=== PATIENT | female | born 1960 | race Caucasian/White ===

== ENCOUNTER 2016-12-27 10:34 | Emergency (ER) | payer BC ==
[2016-12-27] MEDS ORDERED: SODIUM CHLORIDE 0.9% 500 ML IV STA (11:00)
[2016-12-27] MEDS ORDERED: ACETAMINOPHEN TAB 500 MG TAB PO STA (11:00)
[2016-12-27] MEDS ORDERED: SODIUM CHLORIDE 0.9% 1,000 ML IV STA (11:00)
[2016-12-27] MEDS ORDERED: KETOROLAC 30 MG/ML 1 ML VIAL IVP STA (11:01)
[2016-12-27] MEDS ORDERED: IV VANCOMYCIN PER PHARMACY 1 EACH MISC MISCELLANE PRN (11:01)
[2016-12-27] MEDS ORDERED: VANCOMYCIN 1,000 MG in SODIUM CHLORIDE 0.9% 250 ML IVPB STA (11:22)
[2016-12-27 11:25] LABS: Basophils % (A) 0 %; CH 31.3; CHCM 33.2; Eosinophils # (A) 0.4 k/uL (0-0.7); Eosinophils % (A) 2 %; HCT 42.9 % (34.0-46.0); HDW 2.28; Luc # (Auto) 0.09; Luc % (Auto) 1; Lymphocytes # (A) 1.1 k/uL (1.0-4.8); Lymphocytes % (A) 6 %; MCH 30.9 pg (25.0-35.0); MCHC 32.6 g/dL (31.0-37.0); MCV 94.7 fL (80.0-100.0); Mean Platelet Volume 7.2; Monocytes # (A) 0.7 k/uL (0-1.0); Monocytes % (A) 3 %; Neutrophils # (A) 17.1 k/uL (1.3-7.7); Neutrophils % (A) 88 %; RBC 4.54 m/uL (3.80-5.40); RDW 13.6 % (11.5-15.5); WBC 19.3 k/uL (3.8-10.6); WBC (Perox) 19.31
[2016-12-27 11:39] LABS: ALT 39 U/L (9-52); AST 29 U/L (14-36); Alkaline Phosphatase 59 U/L (38-126); Anion Gap 10 mmol/L; Blood Urea Nitrogen 16 mg/dL (7-17); Calcium 9.3 mg/dL (8.4-10.2); Carbon Dioxide 28 mmol/L (22-30); Chloride 101 mmol/L (98-107); Glucose 91 mg/dL (74-99); Non-African American GFR(MDRD) >60 (>60 ml/min/1.73 sqM); Potassium 4.4 mmol/L (3.5-5.1); Sodium 139 mmol/L (137-145); Total Bilirubin 1.4 mg/dL (0.2-1.3)
--- NOTE | 2016-12-27 12:04 | XR ---
EXAMINATION TYPE: XR chest 2V DATE OF EXAM: 12/27/2016 COMPARISON: 08/12/13 HISTORY: Shortness of breath TECHNIQUE: Frontal and lateral views of the chest are obtained. FINDINGS: Scattered senescent parenchymal changes noted. Hyperinflation compatible with COPD. No evidence for infiltrate. No evidence for atelectasis. Heart size is stable. Mediastinal structures are stable and grossly unremarkable. No evidence for hilar prominence. Degenerative changes dorsal spine. IMPRESSION: 1. No evidence for acute pulmonary disease.
[2016-12-27 12:40] LABS: Appearance,Urine Clear (Clear); Bilirubin,Urine Negative (Negative); Glucose,Urine (UA) Negative (Negative); Ketones,Urine Negative (Negative); Leukocyte Esterase,Urine Negative (Negative); Mucus,Urine Rare /hpf; Nitrite,Urine Negative (Negative); PH, Urine 6.5 (5.0-8.0); Particle Count 1737; Protein,Urine Trace (Negative); RBC,Urine 3 /hpf (0-5); Specific Gravity,Urine 1.017 (1.001-1.035); Squamous Epithelial Cell,Urine <1 /hpf (0-4); UA Billing (MACRO vs. MICRO) MICRO; Urobilinogen,Urine <2.0 mg/dL (<2.0); WBC,Urine <1 /hpf (0-5)
--- NOTE | 2016-12-27 13:01 | ED ---
General Adult HPI - General Chief complaint: Skin/Abscess/Foreign Body Stated complaint: rt groin infection, MRSA Time Seen by Provider: 12/27/16 10:50 Source: patient Mode of arrival: ambulatory Limitations: no limitations - History of Present Illness Initial comments: This 56-year-old white female presents with the complaint of a fever. She states that this came on approximately 2 days ago. She apparently had been on some antibiotics for a recent perivaginal abscess which apparently came back positive for MRSA. She has had some diffuse myalgias and slight headache. She denies any cough or shortness of breath. She relates that she's had some yellowish and darkish production with her cough. She has also had significant nasal congestion and drainage. She denies any urinary symptoms. She states that she had an incision and drainage of her perivaginal abscess and this is healed quite well. Her symptoms have resolved in this regard. She apparently was on minocycline as well as Keflex. No other complaints or modifying factors. - Related Data Previous Rx's Medication Instructions Recorded Albuterol Sulfate [Proair Hfa] 1 - 2 puff INHALATION Q6HR PRN #1 12/27/16 inhaler Levofloxacin [Levaquin] 750 mg PO DAILY #7 tab 12/27/16 Allergies Allergy/AdvReac Type Severity Reaction Status Date / Time Sulfa (Sulfonamide Allergy Rash/Hives Verified 12/27/16 11:02 Antibiotics) Review of Systems ROS Statement: Those systems with pertinent positive or pertinent negative responses have been documented in the HPI. ROS Other: All systems not noted in ROS Statement are negative. Past Medical History Past Medical History: No Reported History History of Any Multi-Drug Resistant Organisms: MRSA Date of last positivie culture/infection: 12/12/16 MDRO Source:: VUVLA Past Surgical History: Breast Surgery, Cholecystectomy, Orthopedic Surgery, Tonsillectomy, Tubal Ligation Additional Past Surgical History / Comment(s): right hand, breast Past Psychological History: No Psychological Hx Reported Smoking Status: Current some day smoker Past Alcohol Use History: Daily Past Drug Use History: None Reported General Exam - General Exam Comments Initial Comments: GENERAL: The patient is well nourished and well hydrated. She has a temperature of 101. VITAL SIGNS: Heart rate, blood pressure, respiratory rate reviewed as recorded in nurse's notes. EYES: Pupils are round and reactive. Extraocular movements are intact. No conjunctival / lid redness or swelling. ENT: No external evidence of injury, swelling, or ecchymosis. Airway is patent. Throat is clear. NECK: Nontender. No swelling or evidence of injury. No subcutaneous emphysema. Trachea is midline. No thyroid mass. HEART: Regular rate and rhythm. Good peripheral pulses. LUNGS/CHEST: Breath sounds clear and equal bilaterally. No rales, rhonchi, or wheezes. No ecchymosis, subcutaneous emphysema, or tenderness. ABDOMEN: Abdomen soft without tenderness. No palpable masses or organomegaly. No peritoneal signs. No abdominal wall swelling or ecchymosis. EXTREMITIES: No extremity tenderness. Normal muscle tone and function. No thoracolumbar tenderness. NEUROLOGIC: Sensation is grossly intact. Cranial nerve exam reveals face is symmetrical, tongue is midline, speech is clear. SKIN: No abrasions or ecchymosis is noted. No induration or masses noted. PSYCHIATRIC: Alert and oriented. Appropriate behavior and judgment. Genitourinary: There is no further swelling or evidence of abscess or inflammation noted. There is no fluctuance or erythema. Limitations: no limitations Course Vital Signs 12/27/16 12/27/16 12/27/16 10:38 12:01 13:07 Temperature 101.0 F H 100.5 F H Pulse Rate 110 H 99 95 Respiratory 18 17 Rate Blood Pressure 125/60 121/66 O2 Sat by Pulse 100 99 Oximetry Medical Decision Making - Medical Decision Making The patient was seen and examined. All diagnostics were reviewed. The chest x- ray does not show any acute process. The white blood cell count is elevated. An IV is started and she is hydrated and does receive some vancomycin intravenously. The chest x-ray was negative. The WBC was elevated. The patient is doing well on recheck. The urinalysis is negative. It is not felt as though this is related to her recent perivaginal MRSA infection. This area seems to be healing quite well and is essentially resolved. She initially was given vancomycin is of her recent history but it is felt as though she likely has other bacteria causing her sinusitis and bronchitis that would be susceptible to Levaquin. It is felt as though she is stable with outpatient treatment. - Lab Data Result diagrams: 12/27/16 11:15 12/27/16 11:15 Lab Results 12/27/16 12/27/16 12/27/16 Range/Units 11:15 11:15 12:00 WBC 19.3 H (3.8-10.6) k/uL RBC 4.54 (3.80-5.40) m/uL Hgb 14.0 (11.4-16.0) gm/dL Hct 42.9 (34.0-46.0) % MCV 94.7 (80.0-100.0) fL MCH 30.9 (25.0-35.0) pg MCHC 32.6 (31.0-37.0) g/dL RDW 13.6 (11.5-15.5) % Plt Count 355 (150-450) k/uL Neutrophils % 88 % Lymphocytes % 6 % Monocytes % 3 % Eosinophils % 2 % Basophils % 0 % Neutrophils # 17.1 H (1.3-7.7) k/uL Lymphocytes # 1.1 (1.0-4.8) k/uL Monocytes # 0.7 (0-1.0) k/uL Eosinophils # 0.4 (0-0.7) k/uL Basophils # 0.0 (0-0.2) k/uL Sodium 139 (137-145) mmol/L Potassium 4.4 (3.5-5.1) mmol/L Chloride 101 (98-107) mmol/L Carbon Dioxide 28 (22-30) mmol/L Anion Gap 10 mmol/L BUN 16 (7-17) mg/dL Creatinine 0.77 (0.52-1.04) mg/dL Est GFR (MDRD) Af Amer >60 (>60 ml/min/1.73 sqM) Est GFR (MDRD) Non-Af >60 (>60 ml/min/1.73 sqM) Glucose 91 (74-99) mg/dL Calcium 9.3 (8.4-10.2) mg/dL Total Bilirubin 1.4 H (0.2-1.3) mg/dL AST 29 (14-36) U/L ALT 39 (9-52) U/L Alkaline Phosphatase 59 (38-126) U/L Total Protein 7.0 (6.3-8.2) g/dL Albumin 4.4 (3.5-5.0) g/dL Urine Color Yellow Urine Appearance Clear (Clear) Urine pH 6.5 (5.0-8.0) Ur Specific Hudson 1.017 (1.001-1.035) Urine Protein Trace H (Negative) Urine Glucose (UA) Negative (Negative) Urine Ketones Negative (Negative) Urine Blood Trace H (Negative) Urine Nitrite Negative (Negative) Urine Bilirubin Negative (Negative) Urine Urobilinogen <2.0 (<2.0) mg/dL Ur Leukocyte Esterase Negative (Negative) Urine RBC 3 (0-5) /hpf Urine WBC <1 (0-5) /hpf Ur Squamous Epith Cells <1 (0-4) /hpf Urine Mucus Rare H (None) /hpf Disposition Clinical Impression: Bronchitis, Sinusitis, Fever Disposition: HOME SELF-CARE Condition: Good Instructions: Acute Bronchitis (ED), Sinusitis (ED) Additional Instructions: Please use Motrin and/or Tylenol as needed for any pain or fever. Please also use Mucinex DM [id number] medication as needed for any cough or congestion. Prescriptions: Albuterol Sulfate [Proair Hfa] 1 - 2 puff INHALATION Q6HR PRN #1 inhaler PRN Reason: Shortness Of Breath Or Wheezing Levofloxacin [Levaquin] 750 mg PO DAILY #7 tab Referrals: Bryce Tee MD [Primary Care Provider] - 1-2 days Time of Disposition: 15:25
[2016-12-27 15:21] VITALS: RESP 16
[2016-12-27 15:37] VITALS: BP 114/58; PULSE 80; TEMP 98.1
[2016-12-27] MEDS ORDERED: VANCOMYCIN 1,000 MG in SODIUM CHLORIDE 0.9% 250 ML IVPB SCH (21:00)
== END 2016-12-27 15:46 | disposition home or self-care (01) ==
LOC: EC 10:34
DX: J40 Bronchitis, not specified as acute or chronic (principal); J32.9 Chronic sinusitis, unspecified; F17.200 Nicotine dependence, unspecified, uncomplicated; Z86.14 Personal history of Methicillin resistant Staphylococcus aureus infection; Z88.2 Allergy status to sulfonamides
CPT/HCPCS: 99283; 96365; 96366 ×2; 96375; 96361 ×2; 36415; 80053; 85025; 81001; 87040; 87086; 71020; J3370; J1885

== ENCOUNTER → 2017-01-18 | Outpatient (CLI) | payer BC ==
[2017-01-18 13:15] LABS: Basophils % (A) 1 %; CHCM 32.5; Eosinophils # (A) 0.6 k/uL (0-0.7); Eosinophils % (A) 7 %; HCT 39.2 % (34.0-46.0); HDW 2.47; HGB 12.6 gm/dL (11.4-16.0); Luc # (Auto) 0.14; Luc % (Auto) 2; Lymphocytes # (A) 2.8 k/uL (1.0-4.8); Lymphocytes % (A) 32 %; MCH 30.9 pg (25.0-35.0); MCHC 32.2 g/dL (31.0-37.0); Monocytes # (A) 0.4 k/uL (0-1.0); Monocytes % (A) 4 %; Neutrophils # (A) 4.8 k/uL (1.3-7.7); Neutrophils % (A) 55 %; RBC 4.08 m/uL (3.80-5.40); RDW 13.9 % (11.5-15.5); WBC 8.8 k/uL (3.8-10.6); WBC (Perox) 8.74
[2017-01-18 13:27] LABS: ALT 45 U/L (9-52); AST 30 U/L (14-36); Alkaline Phosphatase 53 U/L (38-126); Anion Gap 10 mmol/L; Blood Urea Nitrogen 9 mg/dL (7-17); Calcium 9.6 mg/dL (8.4-10.2); Carbon Dioxide 27 mmol/L (22-30); Chloride 105 mmol/L (98-107); Glucose 89 mg/dL (74-99); Non-African American GFR(MDRD) >60 (>60 ml/min/1.73 sqM); Potassium 4.1 mmol/L (3.5-5.1); Sodium 142 mmol/L (137-145); Total Bilirubin 0.7 mg/dL (0.2-1.3)
[2017-01-18 13:30] LABS: Rheumatoid Factor, Qnt <9 IU/mL (<12)
[2017-01-18 14:24] LABS: Erythrocyte Sedimentation Rate 13 mm/hr (0-20)
[2017-01-18 19:23] LABS: Treponemal Ab Non-Reactive (Non-Reactive)
[2017-01-18 21:52] LABS: ANA w/Reflex to Titer NEGATIVE (NEGATIVE)
== END | disposition home or self-care (01) ==
LOC: LABWHC1 12:46
PROVIDERS: ATTEND Internal Medicine Infectious Disease
DX: R50.81 Fever presenting with conditions classified elsewhere (principal); R50.9 Fever, unspecified; A78 Q fever
CPT/HCPCS: 36415; 80053; 85025; 85652; 86038; 86431; 86780; 87390

== ENCOUNTER → 2017-02-12 | Outpatient (CLI) | payer BC ==
--- NOTE | 2017-02-13 08:22 | CT ---
EXAMINATION TYPE: CT ChestAbdPelvis w con DATE OF EXAM: 02/12/2017 COMPARISON: NONE HISTORY: Fever of unknown region. CT DLP: 516.7 mGycm Automated exposure control for dose reduction was used. CONTRAST: CT scan of the chest, abdomen and pelvis is performed with Oral Contrast and with IV Contrast, patien t injected with 100 mL of Omnipaque 300. FINDINGS: LUNGS: Some emphysematous changes are present at the lung apices. No endobronchial lesion, pleural pe ricardial effusion. No evident airspace disease. Bilateral breast prosthetics are in place. MEDIASTINUM: There are no greater than 1 cm hilar or mediastinal lymph nodes. No pericardial effusi on is seen. AORTA: No significant abnormality is seen. OTHER: No additional significant abnormality is seen. LIVER/GB: Gallbladder is absent. No evident liver mass. Low-attenuation within the liver may represen t hepatic steatosis. PANCREAS: No significant abnormality is seen. SPLEEN: No significant abnormality is seen. ADRENALS: No significant abnormality is seen. KIDNEYS: Prominent renal pelves may be indicative of partial UPJ obstructions. No evident renal mass. REPRODUCTIVE ORGANS: Uterus and ovaries not seen. BOWEL: The appendix is not seen with certainty. No evident bowel obstruction. Scattered diverticular change in the sigmoid colon suspected. Retained fecal debris throughout the distribution of the colo n. FREE AIR: No Free Air visible. ASCITES: None seen. RETROPERITONEAL ADENOPATHY: No retroperitoneal adenopathy is seen. LYMPH NODES: No greater than 1 cm abdominal or pelvic lymph nodes are appreciated. URINARY BLADDER: No significant abnormality is seen. PELVIC ADENOPATHY: None visualized. 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 IMPRESSION: Postop changes. Diverticulosis. Degenerative disc disease. Additional findings above.
== END | disposition home or self-care (01) ==
LOC: RADCTMAIN 18:23
PROVIDERS: ATTEND Internal Medicine Infectious Disease
DX: K57.30 Diverticulosis of large intestine without perforation or abscess without bleeding (principal); Z98.890 Other specified postprocedural states
CPT/HCPCS: 71260; 74177; Q9967

== ENCOUNTER → 2018-03-05 | Outpatient (CLI) | payer BC ==
--- NOTE | 2018-03-05 15:43 | US ---
EXAMINATION TYPE: US pelvic complete DATE OF EXAM: 03/05/2018 COMPARISON: CT 02/12/2017 CLINICAL HISTORY: Z12.4. Pelvic pain. Partial hysterectomy in 1979 per patient TECHNIQUE: . Transabdominal sonographic images of the pelvis were acquired. Date of LMP: 1979 EXAM MEASUREMENTS: Uterus: Surgically absent Endometrial Stripe: Surgically absent Right Ovary: 2.5 x 1.1 x 1.7 cm Left Ovary: 1.8 x 1.2 x 1.1 cm 1. Uterus: Surgically absent 2. Endometrium: Surgically absent 3. Right Ovary: wnl as visualized 4. Left Ovary: wnl as visualzied 5. Bilateral Adnexa: wnl 6. Posterior cul-de-sac: wnl IMPRESSION: 1. No distinct abnormality seen at this time.
== END | disposition home or self-care (01) ==
LOC: RADUSWWP 14:56
PROVIDERS: ATTEND Family Medicine
DX: R10.2 Pelvic and perineal pain (principal)
CPT/HCPCS: 76856

== ENCOUNTER → 2019-11-05 | Outpatient (CLI) | payer BC ==
--- NOTE | 2019-11-05 13:30 | XR ---
EXAMINATION TYPE: XR chest 2V DATE OF EXAM: 11/05/2019 COMPARISON: 12/27/2016 HISTORY: Costochondral junction syndrome, chest pain TECHNIQUE: Frontal and lateral views of the chest are obtained. FINDINGS: There is no focal air space opacity, pleural effusion, or pneumothorax seen. Stable minim al biapical pleural-parenchymal thickening. The cardiac silhouette size is within normal limits mild multilevel degenerative change of the spine. Cholecystectomy clips noted. IMPRESSION: No acute cardiopulmonary process.
== END | disposition home or self-care (01) ==
LOC: RADXRMAIN 12:26
PROVIDERS: ATTEND Family Medicine
DX: M94.0 Chondrocostal junction syndrome [Tietze] (principal)
CPT/HCPCS: 71046

== ENCOUNTER 2020-02-16 16:56 | Emergency (ER) | payer BC ==
[2020-02-16 17:03] VITALS: BP 153/75; PULSE 88; RESP 18; TEMP 98.2
[2020-02-16] MEDS ORDERED: HYDROmorphone 0.5 MG/0.5 ML SYRINGE IM STA (17:16)
[2020-02-16] MEDS ORDERED: ONDANSETRON ODT 4 MG TAB PO STA (17:16)
--- NOTE | 2020-02-16 18:18 | XR ---
EXAMINATION TYPE: XR ribs RT w pa chest xray DATE OF EXAM: 02/16/2020 COMPARISON: 11/05/2019 HISTORY: Pain TECHNIQUE: Chest with 2 view right ribs FINDINGS: Heart size is normal. Pulmonary vasculature is normal. Lungs are clear. Right ribs appear intact. No displaced rib fractures are identified. IMPRESSION: 1. Normal 2 view right ribs
[2020-02-16] MEDS ORDERED: ACET/COD 300 MG/30 MG STARTER PACK 6 TAB BTL PO STA (18:42)
[2020-02-16] MEDS ORDERED: ONDANSETRON 4 MG ODT STARTER PACK 2 TAB BTL PO STA (18:42)
--- NOTE | 2020-02-16 18:42 | ED ---
General Adult HPI - General Chief complaint: Chest Pain Stated complaint: pain under ribs Time Seen by Provider: 02/16/20 17:05 Source: patient Mode of arrival: ambulatory Limitations: no limitations - History of Present Illness Initial comments: 60-year-old female with a past medical history of MRSA presents to the emergency room for a chief complaint of right rib pain. Patient states she was reaching over to tack picker a heavy pot when she felt a pop in the right side of her ribs. States it is very painful to move. States she sneezed and exacerbated the pain earlier. She denies any shortness of breath. Denies any abdominal pain. Denies any anterior chest pain.Patient has no other complaints at this time including shortness of breath, abdominal pain, nausea or vomiting, headache, or visual changes. - Related Data Previous Rx's Medication Instructions Recorded Albuterol Sulfate [Proair Hfa] 1 - 2 puff INHALATION Q6HR PRN #1 12/27/16 inhaler Levofloxacin [Levaquin] 750 mg PO DAILY #7 tab 12/27/16 Allergies Allergy/AdvReac Type Severity Reaction Status Date / Time Sulfa (Sulfonamide Allergy Rash/Hives Verified 02/16/20 17:03 Antibiotics) codeine AdvReac Nausea & Verified 02/16/20 17:03 Vomiting Review of Systems ROS Statement: Those systems with pertinent positive or pertinent negative responses have been documented in the HPI. ROS Other: All systems not noted in ROS Statement are negative. Past Medical History Past Medical History: No Reported History History of Any Multi-Drug Resistant Organisms: MRSA Date of last positivie culture/infection: 12/12/16 MDRO Source:: VUVLA Past Surgical History: Breast Surgery, Cholecystectomy, Orthopedic Surgery, Tonsillectomy, Tubal Ligation Additional Past Surgical History / Comment(s): right hand, breast, Past Psychological History: No Psychological Hx Reported Smoking Status: Current every day smoker Past Alcohol Use History: Occasional Past Drug Use History: None Reported General Exam Limitations: no limitations General appearance: alert, in no apparent distress Head exam: Present: atraumatic, normocephalic, normal inspection Eye exam: Present: normal appearance, PERRL, EOMI. Absent: scleral icterus, conjunctival injection, periorbital swelling ENT exam: Present: normal exam, mucous membranes moist Neck exam: Present: normal inspection, full ROM. Absent: tenderness, m eningismus, lymphadenopathy Respiratory exam: Present: normal lung sounds bilaterally, chest wall tenderness (Patient has right-sided anterior lateral lower rib tenderness around rib 9). Absent: respiratory distress, wheezes, rales, rhonchi, stridor Course Vital Signs 02/16/20 02/16/20 16:59 17:31 Temperature 98.2 F Pulse Rate 88 Respiratory 18 18 Rate Blood Pressure 153/75 O2 Sat by Pulse 99 Oximetry Medical Decision Making - Medical Decision Making Rib study with an anterior posterior chest x-ray was obtained which was unremarkable. Patient likely strained intercostal muscle. Patient was given pain medication she will follow up with primary care. She'll return if you have any worsening symptoms.I discussed this case with attending Dr. Cortes who agrees with this assessment and treatment plan. Disposition Clinical Impression: Rib pain on right side Disposition: HOME SELF-CARE Condition: Good Instructions (If sedation given, give patient instructions): Costochondritis (ED) Additional Instructions: Please take Motrin for pain. If pain is severe take Tylenol 3. Please follow- up with your doctor. If you have any worsening symptoms return to the emergency room. Is patient prescribed a controlled substance at d/c from ED?: No Referrals: Mina Candelario MD [Primary Care Provider] - 1-2 days Time of Disposition: 18:40
== END 2020-02-16 18:50 | disposition home or self-care (01) ==
LOC: EC 16:56
DX: R07.81 Pleurodynia (principal); F17.200 Nicotine dependence, unspecified, uncomplicated; Z88.2 Allergy status to sulfonamides; Z88.5 Allergy status to narcotic agent
CPT/HCPCS: 71101; 99283; 96372; S0119; J1170

== ENCOUNTER → 2020-04-21 | Outpatient (CLI) | payer BC | END | disposition home or self-care (01) | LOC: LABWHC1 12:00 | PROVIDERS: ATTEND Nurse Practitioner | DX: Z03.89 Encounter for observation for other suspected diseases and conditions ruled out (principal) | CPT/HCPCS: U0003; C9803 ==

== ENCOUNTER 2020-05-24 08:47 | Emergency (ER) | payer BC ==
[2020-05-24 08:53] VITALS: RESP 18
[2020-05-24] MEDS ORDERED: KETOROLAC 15 MG/ML 1 ML VIAL IM STA (09:06)
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
[2020-05-24 09:45] LABS: Basophils # (A) 0.1 k/uL (0-0.2); Basophils % (A) 1 %; Eosinophils # (A) 0.2 k/uL (0-0.7); Eosinophils % (A) 2 %; HCT 39.7 % (34.0-46.0); HGB 13.6 gm/dL (11.4-16.0); Lymphocytes # (A) 2.6 k/uL (1.0-4.8); Lymphocytes % (A) 31 %; MCH 31.8 pg (25.0-35.0); MCHC 34.3 g/dL (31.0-37.0); MCV 92.8 fL (80.0-100.0); Mean Platelet Volume 7.3; Monocytes # (A) 0.5 k/uL (0-1.0); Monocytes % (A) 6 %; Neutrophils # (A) 4.8 k/uL (1.3-7.7); Neutrophils % (A) 58 %; Platelet Count 385 k/uL (150-450); RBC 4.28 m/uL (3.80-5.40); RDW 12.9 % (11.5-15.5); WBC 8.3 k/uL (3.8-10.6)
[2020-05-24 09:54] LABS: ALT 24 U/L (4-34); African American GFR (CKD) >90 (>60 ml/min/1.73 sqM); Albumin 4.6 g/dL (3.5-5.0); Anion Gap 7 mmol/L; Blood Urea Nitrogen 14 mg/dL (7-17); Calcium 9.4 mg/dL (8.4-10.2); Carbon Dioxide 27 mmol/L (22-30); Chloride 106 mmol/L (98-107); Glucose 89 mg/dL (74-99); Non-African American GFR(CKD) >90 (>60 ml/min/1.73 sqM); Sodium 140 mmol/L (137-145); Total Bilirubin 0.8 mg/dL (0.2-1.3); Total Protein 7.2 g/dL (6.3-8.2)
[2020-05-24 09:56] LABS: AST 36 U/L (14-36); Alkaline Phosphatase 39 U/L (38-126); Potassium 4.6 mmol/L (3.5-5.1)
--- NOTE | 2020-05-24 10:05 | XR ---
EXAMINATION TYPE: XR chest 2V DATE OF EXAM: 05/24/2020 COMPARISON: 9 8 INDICATION: Pain TECHNIQUE: Frontal and lateral views of the chest are obtained. FINDINGS: The heart size is normal. The pulmonary vasculature is normal. The lungs are clear. IMPRESSION: 1. No acute pulmonary process.
--- NOTE | 2020-05-24 10:06 | XR ---
EXAMINATION TYPE: XR wrist complete RT DATE OF EXAM: 05/24/2020 COMPARISON: None HISTORY: Pain TECHNIQUE: Right FINDINGS: No acute fractures or dislocations are evident. Joint spaces are preserved. Soft tissues. Follow-up study can be performed 7-10 days from acute trauma for continued pain. Nuclear medicine bon e scan could be performed for continued pain at the anatomic snuff box. IMPRESSION: 1. Normal 4 view right wrist
[2020-05-24] MEDS ORDERED: ACET/COD 300 MG/30 MG STARTER PACK 6 TAB BTL PO STA (10:45)
[2020-05-24 10:52] VITALS: BP 138/74; PULSE 71; TEMP 98.6
== END 2020-05-24 10:51 | disposition home or self-care (01) ==
LOC: EC 08:47
DX: R07.81 Pleurodynia (principal); M25.531 Pain in right wrist; F17.200 Nicotine dependence, unspecified, uncomplicated; Z88.2 Allergy status to sulfonamides; Z88.5 Allergy status to narcotic agent
CPT/HCPCS: 36415; 85379; 80053; 84484; 85025; 73110; 71046; 99285; 96372; J1885; 93005

== ENCOUNTER → 2020-05-27 | Outpatient (CLI) | payer BC ==
--- NOTE | 2020-05-30 09:57 | MM ---
Reason for exam: screening (asymptomatic). Last mammogram was performed 7 years and 2 months ago. History: Patient history of other cancer. Saline implants in both breasts, 2007. Physical Findings: A clinical breast exam by your physician is recommended on an annual basis and results should be correlated with mammographic findings. MG 3D Screen Mammo Imp/Cad Bilateral CC, MLO, and ID view(s) were taken. Prior study comparison: March 25, 2013, mammogram. March 20, 2013, mammogram. The breast tissue is heterogeneously dense. This may lower the sensitivity of mammography. Stable benign calcifications. Stable bilateral implants. No significant changes when compared with prior studies. ASSESSMENT: Benign, BI-RAD 2 RECOMMENDATION: Routine screening mammogram of both breasts in 1 year.
== END | disposition home or self-care (01) ==
LOC: RADMAMWWP 09:38
PROVIDERS: ATTEND Family Medicine
DX: Z12.31 Encounter for screening mammogram for malignant neoplasm of breast (principal)
CPT/HCPCS: 77063; 77067

== ENCOUNTER → 2020-07-07 | Outpatient (CLI) | payer BC | END | disposition home or self-care (01) | LOC: LABWHC1 15:50 | PROVIDERS: ATTEND Family Medicine | DX: Z20.822 Contact with and (suspected) exposure to COVID-19 (principal) | CPT/HCPCS: 87502; C9803 ==

== ENCOUNTER → 2020-08-25 | Outpatient (CLI) | payer BC | END | disposition home or self-care (01) | LOC: LABWHC1 11:48 | PROVIDERS: ATTEND Nurse Practitioner Family | DX: L30.9 Dermatitis, unspecified (principal) | CPT/HCPCS: 36415; 86060 ==

== ENCOUNTER → 2020-09-08 | Outpatient (CLI) | payer BC | END | disposition home or self-care (01) | LOC: LABWHC1 16:15 | PROVIDERS: ATTEND Family Medicine | DX: U07.1 COVID-19 (principal) | CPT/HCPCS: U0003; C9803; U0005 ==

== ENCOUNTER → 2020-09-23 | Outpatient (CLI) | payer BC ==
--- NOTE | 2020-09-25 06:54 | MR ---
EXAMINATION TYPE: MR knee RT wo con DATE OF EXAM: 09/23/2020 COMPARISON: Outside right knee x-rays September 19, 2020. HISTORY: R knee pain x 2 months TECHNIQUE: Multiplanar, multisequence imaging of the right knee is performed without IV contrast. FINDINGS: MEDIAL MENISCUS: Oblique and triangular shaped increased signal extends to inferior articular surface in the posterior horn sagittal image 7. LATERAL MENISCUS: Anterior and posterior horns are intact without tear. CRUCIATE LIGAMENTS: The anterior and posterior cruciate ligaments are intact and unremarkable. COLLATERAL LIGAMENTS: The medial collateral ligament and lateral collateral ligament complex are inta ct and unremarkable. EXTENSOR MECHANISM: Visualized quadriceps and patellar tendons are intact. EFFUSION: There is small size suprapatellar joint effusion. POPLITEAL CYST: Small to tiny popliteal/moore cyst. TRICOMPARTMENT SPACES: Mild to moderate patellofemoral compartment joint space loss with mild spurrin g. Mild narrowing medial and lateral tibiofemoral compartments. No significant spurring. CARTILAGE: Some chondromalacia patella with thinning of articular cartilage along the inferior aspect of the posterior patellar pole. Fissuring is present. Articular cartilage fairly well maintained med ial and lateral tibiofemoral compartments. BONE MARROW SIGNAL: No focal abnormal marrow signal is appreciated. OTHER: No additional significant abnormality is appreciated. IMPRESSION: 1. Full-thickness tear posterior horn of medial meniscus. 2. Mild to moderate tricompartment degenerative changes greatest patellofemoral compartment as detail ed above. 3. Small suprapatellar joint effusion. 4. Small to tiny popliteal cyst.
== END | disposition home or self-care (01) ==
LOC: RADMRIMAIN 13:10
PROVIDERS: ATTEND Orthopaedic Surgery
DX: M23.321 Other meniscus derangements, posterior horn of medial meniscus, right knee (principal); M17.11 Unilateral primary osteoarthritis, right knee; M71.21 Synovial cyst of popliteal space [Baker], right knee

== ENCOUNTER → 2020-09-23 | Outpatient (CLI) | payer BC ==
[2020-09-23 22:06] LABS: C Reactive Protein 2.3 mg/dL (0.0-0.8)
[2020-09-24 00:36] LABS: Anti-DNA, DS unit <1.0 IU/mL; DNA Double-Stranded NEGATIVE (NEGATIVE)
== END | disposition home or self-care (01) ==
LOC: LABWHC1 12:49
PROVIDERS: ATTEND Nurse Practitioner Family
DX: R50.9 Fever, unspecified (principal); G89.29 Other chronic pain
CPT/HCPCS: 36415; 85652; 86038; 86140; 86160; 86225; 86431

== ENCOUNTER → 2020-10-13 | Outpatient (CLI) | payer BC ==
[2020-10-13 12:57] LABS: Basophils # (A) 0.1 k/uL (0-0.2); Basophils % (A) 1 %; Eosinophils # (A) 0.1 k/uL (0-0.7); Eosinophils % (A) 1 %; HCT 41.9 % (34.0-46.0); HGB 13.4 gm/dL (11.4-16.0); Lymphocytes # (A) 2.9 k/uL (1.0-4.8); Lymphocytes % (A) 29 %; MCH 30.3 pg (25.0-35.0); MCV 94.5 fL (80.0-100.0); Mean Platelet Volume 6.9; Monocytes # (A) 0.5 k/uL (0-1.0); Monocytes % (A) 5 %; Neutrophils # (A) 6.3 k/uL (1.3-7.7); Neutrophils % (A) 64 %; Platelet Count 478 k/uL (150-450); RBC 4.44 m/uL (3.80-5.40); RDW 13.9 % (11.5-15.5); WBC 9.9 k/uL (3.8-10.6)
[2020-10-13 13:16] LABS: Potassium 4.6 mmol/L (3.5-5.1)
== END | disposition home or self-care (01) ==
LOC: LABPAT 11:26
PROVIDERS: ATTEND Orthopaedic Surgery
DX: Z01.812 Encounter for preprocedural laboratory examination (principal); M23.91 Unspecified internal derangement of right knee
CPT/HCPCS: 36415; 80051; 85025

== ENCOUNTER → 2020-10-19 | Outpatient (CLI) | payer BC ==
--- NOTE | 2020-10-19 18:08 | XR ---
EXAMINATION TYPE: XR chest 2V DATE OF EXAM: 10/19/2020 COMPARISON: 05/24/2020 HISTORY: Chest pain TECHNIQUE: 2 views FINDINGS: Heart and mediastinum are normal. Lungs are clear. Diaphragm is normal. Bony thorax is inta ct. Pulmonary vascularity is normal. IMPRESSION: Normal chest. No change.
== END | disposition home or self-care (01) ==
LOC: RADXRMAIN 17:42
PROVIDERS: ATTEND Orthopaedic Surgery
DX: R07.9 Chest pain, unspecified (principal)
CPT/HCPCS: 71046

== ENCOUNTER 2020-10-21 06:27 | Day surgery (SDC) | payer BC ==
[2020-10-18 09:43] VITALS: BMI 24.9
--- NOTE | 2020-10-20 13:14 | HP ---
HISTORY AND PHYSICAL CHIEF COMPLAINT: Right knee pain. 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 He notes medial pain along with swelling, catching, locking, and giving out. She is having night symptoms. She notes she is having a difficult time with normal walking and has been limping. PAST MEDICAL HISTORY: Significant for anxiety disorder. PAST SURGICAL HISTORY: Significant for hysterectomy, hand surgery and cholecystectomy. FAMILY HISTORY: Significant for cancer. SOCIAL HISTORY: Significant for 2 pack per day tobacco use. 16 POINT REVIEW OF SYSTEMS: Otherwise reviewed and is noncontributory. CURRENT MEDICATIONS: Cyclobenzaprine, hydroxyzine. ALLERGIES: She notes allergies to SULFA. PHYSICAL EXAMINATION: On examination, the patient is approximately 5 foot 4, 140 pounds, of mesomorphic habitus. HEENT exam is nonfocal. Neck is supple. She has painless passive motion of the right hip. Straight leg raise is negative. Active motion right knee -8 to 130 degrees of flexion. She has a trace effusion. She is tender about the medial joint line. Collaterals are stable, Farhan is negative, Mulugeta's elicits medial pain. MRI report right knee 09/23/2020 shows evidence of a posterior medial meniscal tear. IMPRESSION: Right knee internal derangement with symptomatic medial meniscal tear. RECOMMENDATIONS: I talked to the patient at length regarding her condition and treatment options. At this point she is having significant pain and mechanical symptoms that limit her. After thorough discussion, she opts to proceed with surgery. We will proceed with arthroscopic evaluation AND probable partial medial meniscectomy. Risks and benefits were discussed at length in layman's terms. We will likely perform that as an outpatient procedure. MMODL / IJN: [id number] /
[~2020-10-21 06:27] MED LIST: DEXAMETHASONE SOD PHOSPHATE 4 MG/ML 1 ML VIAL IV ONE; LACTATED RINGERS 1,000 ML IV SCH; LIDOCAINE 1% (10MG/ML) FOR IV START INTRADERMA PRN; MIDAZOLAM 2 MG/2 ML VIAL IV PRN; ONDANSETRON 4 MG/2 ML VIAL IVP ONE
[2020-10-21] MEDS ORDERED: SCOPOLAMINE 1.5MG/72HR PATCH TRANSDERM ONE (07:14)
[2020-10-21] MEDS ORDERED: MIDAZOLAM 2 MG/2 ML VIAL IVP ONE (07:25)
[2020-10-21] MEDS ORDERED: fentaNYL (PF) 50 MCG/ML 2 ML AMP ONE (07:47)
[2020-10-21] MEDS ORDERED: LIDOCAINE 1% INJ 10MG/ML (20 ML MDV) ONE (07:47)
[2020-10-21] MEDS ORDERED: SUCCINYLCHOLINE CHLORIDE 100 MG/5 ML SYR IV ONE (07:47)
[2020-10-21] MEDS ORDERED: PROPOFOL 10 MG/ML 20 ML VIAL IV ONE (07:47)
[2020-10-21] MEDS ORDERED: KETOROLAC 15 MG/ML 1 ML VIAL ONE (07:47)
[2020-10-21] MEDS: HYDROmorphone 0.5 MG/0.5 ML SYRINGE IVP PRN ×2 (08:45→08:55)
--- NOTE | 2020-10-21 08:49 | P.OP ---
Date of Procedure: 10/21/20 Preoperative Diagnosis: Right knee internal derangement Postoperative Diagnosis: Right knee posterior medial/posterior lateral meniscal tears Procedure(s) Performed: Right knee arthroscopic partial medial meniscectomy/partial lateral meniscectomy Anesthesia: EVYA Surgeon: Luís Woo Estimated Blood Loss (ml): 10 Pathology: none sent Condition: stable Disposition: PACU Indications for Procedure: The patient's a 60-year-old female who presents with progressive right knee pain and mechanical symptoms after a previous injury. A discussion of the risks and benefits of operative intervention versus continued conservative measures was made with patient. She opted to proceed with surgery. Operative risks to include infection, neurovascular injury, development of blood clots, possible incomplete resolution of symptoms, possible worsening symptoms and need for subsequent procedures was discussed. Informed consent was obtained. Operative Findings: As below Description of Procedure: The patient was brought to the operating room, and after induction of general anesthesia examined the right knee. Collaterals were stable, Farhan was negative, and posterior drawer was negative. The right lower extremity was p repped and draped in a normal fashion. A superior lateral portal was made through a 3 mm skin incision superior and lateral to the patella. This was used for outflow. A lateral portal was made through a 5 mm vertical skin incision lateral to the patella tendon above the joint line. Diagnostic arthroscopy was performed. On inspection of the medial compartment, a complex oblique tear involving the posterior horn of the medial meniscus in the white-red junction was noted. This was debrided back to stable base with straight baskets and a motorized shaver. There were grade 2 chondral changes diffusely in the medial compartment. On inspection of the notch, the anterior cruciate ligament appeared to be intact. On inspection of the lateral compartment, a radial tear involving the middle to posterior one third was noted in the white-white junction. This was debrided back to stable base with straight baskets and a motorized shaver. The remaining lateral meniscus was stable and intact. On inspection of the patellofemoral articulation mothers grade 2-3 chondral changes involving lateral patella facet.. The gutters were clear debris. The knee was then thoroughly irrigated. The portals were closed with Steri-Strips. A sterile dressing was applied in addition to a compression stocking. The patient was awoken from general anesthesia and transferred to recovery room in good condition. Blood loss was estimated at 10 mL. No complications were incurred.
[2020-10-21 08:54] VITALS: TEMP 97.6
[2020-10-21] MEDS ORDERED: ONDANSETRON 4 MG/2 ML VIAL IVP ONE (09:01)
[2020-10-21 10:47] VITALS: BP 132/78; PULSE 70; RESP 16
== END 2020-10-21 11:00 | disposition home or self-care (01) ==
LOC: OR 06:27
PROVIDERS: ATTEND Orthopaedic Surgery
DX: M23.221 Derangement of posterior horn of medial meniscus due to old tear or injury, right knee (principal); M23.251 Derangement of posterior horn of lateral meniscus due to old tear or injury, right knee; F41.9 Anxiety disorder, unspecified; Z90.710 Acquired absence of both cervix and uterus; Z90.49 Acquired absence of other specified parts of digestive tract; Z80.9 Family history of malignant neoplasm, unspecified; F17.210 Nicotine dependence, cigarettes, uncomplicated; Z79.899 Other long term (current) drug therapy; Z90.89 Acquired absence of other organs; Z98.890 Other specified postprocedural states; Z88.2 Allergy status to sulfonamides
CPT/HCPCS: 29880; J2250; J1100; J2405; J0690; J2001; J3010; J1885; J0330; J2704; J1170

== ENCOUNTER → 2020-11-28 | Outpatient (CLI) | payer BC ==
--- NOTE | 2020-11-28 15:47 | MR ---
EXAMINATION TYPE: MR cervical spine wo con DATE OF EXAM: 11/28/2020 COMPARISON: None HISTORY: Neck pain, numbness TECHNIQUE: Multiplanar, multisequence images of the cervical spine were acquired. C2-C3: No evidence for degenerative disc disease. No disc bulge/herniation or protrusion. No Canal stenosis. Foramina are patent bilaterally. C3-C4: There is left-sided uncovertebral and facet arthropathy with mild left neural foraminal narrow ing. C4-C5: There is a disc osteophyte complex with bilateral uncovertebral and facet arthropathy with mod erate left neural foraminal narrowing. C5-C6: There is a disc osteophyte complex with bilateral uncovertebral and facet arthropathy with mil d bilateral neural foraminal narrowing and mild central canal stenosis. C6-C7: There is a disc osteophyte complex with bilateral uncovertebral and facet arthropathy resultin g in moderate bilateral neural foraminal narrowing and moderate central canal stenosis. C7-T1: No evidence for degenerative disc disease. No disc bulge/herniation or protrusion. No Canal stenosis. Foramina are patent bilaterally. There is a 0.5 cm T2 bright/T1 dark ovoid lesion in the right lateral aspect of the T1 vertebral body which is incompletely included. Vertebral body heights are preserved. There is normal alignment. Ce rvical spinal cord is of normal signal. Craniovertebral junction relationships are within normal mera its. IMPRESSION: 1. Multilevel disc disease and osteoarthritic changes of the cervical spine are worst at C6-7 where t here is moderate bilateral neural foraminal narrowing and moderate central canal stenosis. 2. 0.5 cm ovoid T2 bright-T1 dark lesion of the right lateral aspect of the T1 vertebral body is inco mpletely included. Please correlate clinically. If there is clinical concern for neoplasm, including metastatic disease, MRI with and without contrast could be performed for further evaluation.
== END | disposition home or self-care (01) ==
LOC: RADMRIMAIN 13:05
PROVIDERS: ATTEND Orthopaedic Surgery
DX: M48.02 Spinal stenosis, cervical region (principal); M50.30 Other cervical disc degeneration, unspecified cervical region; M99.71 Connective tissue and disc stenosis of intervertebral foramina of cervical region; M47.812 Spondylosis without myelopathy or radiculopathy, cervical region
CPT/HCPCS: 72141

== ENCOUNTER → 2020-12-16 | Outpatient (CLI) | payer BC ==
[2020-12-17 04:40] LABS: Basophils # (A) 0.05 X 10*3/uL (0.00-0.10); Basophils % (A) 0.5 %; Eosinophils # (A) 0.08 X 10*3/uL (0.04-0.35); Eosinophils % (A) 0.8 %; HCT 42.5 % (37.2-46.3); HGB 13.1 g/dL (12.0-15.0); Lymphocytes # (A) 3.26 X 10*3/uL (0.90-5.00); Lymphocytes % (A) 32.8 %; MCH 30.8 pg (27.0-32.0); MCHC 30.8 g/dL (32.0-37.0); Mean Platelet Volume 10.1 fL (9.5-12.2); Monocytes # (A) 0.56 X 10*3/uL (0.20-1.00); Monocytes % (A) 5.6 %; Neutrophils # (A) 5.96 X 10*3/uL (1.80-7.70); Platelet Count 409 X 10*3/uL (140-440); RBC 4.25 X 10*6/uL (4.10-5.20); RDW 13.3 % (11.5-14.5); WBC 9.94 X 10*3/uL (4.50-10.00)
[2020-12-17 04:51] LABS: ALT 24 U/L (8-44); AST 25 U/L (13-35); African American GFR (CKD) 93.5 (60.0-200.0); Albumin/Globulin Ratio 2.05 (1.60-3.17); Alkaline Phosphatase 44 U/L (41-126); Calcium 9.4 mg/dL (8.7-10.3); Carbon Dioxide 31.8 mmol/L (21.6-31.8); Chloride 107 mmol/L (96-109); Globulin 2.1 g/dL (1.6-3.3); Glucose 117 mg/dL (70-110); Non-African American GFR(CKD) 80.7 (60.0-200.0); Potassium 3.9 mmol/L (3.5-5.5); Sodium 143 mmol/L (135-145); Total Bilirubin 0.5 mg/dL (0.3-1.2); Total Protein 6.4 g/dL (6.2-8.2)
[2020-12-17 04:52] LABS: C Reactive Protein <0.4 mg/dL (0.0-0.8)
[2020-12-17 06:28] LABS: Erythrocyte Sedimentation Rate 5 mm/Hr (0-30)
== END | disposition home or self-care (01) ==
LOC: LABWHC1 13:20
PROVIDERS: ATTEND Orthopaedic Surgery
DX: M89.8X8 Other specified disorders of bone, other site (principal)
CPT/HCPCS: 36415; 80053; 82306; 85025; 85652; 86140

== ENCOUNTER → 2021-01-07 | Outpatient (CLI) | payer BC ==
--- NOTE | 2021-01-08 00:22 | MR ---
EXAMINATION TYPE: MR cspine/tspine/lspine wo/w DATE OF EXAM: 01/07/2021 COMPARISON: Cervical spine exam 11/28/2020 HISTORY: Cervicalgia, thoracic spine pain, low back pain and numbness CONTRAST: Standard multiplanar, multisequence MRI departmental protocol utilizing 6.5 mL intravenous Gadavist g adolinium contrast. The cervical vertebra have normal alignment. There is some degenerative disc space narrowing througho ut the cervical spine and more noticeable from C4 to C7. There is anterior and posterior endplate spu r formation. There is small posterior disc bulging from C4 to C7. There is developmentally adequate s medina canal. The canal is narrowed to 6.5 mm at C6-7 which is the narrowest point. Cervical spinal co rd shows no edema. There is mild flattening of the cervical cord at C6-7 and more on the left side. T here is impingement on the left side C6-7 neural foramen. There is uncovertebral spurring and left si de C5-6 neural foraminal impingement. There is similar change at C4-5. The brainstem is intact. There is no compression fracture. Contrast images show no pathologic enhancement in the cervical spine. I see no evidence of a suspicious lesion at the T1 vertebral body. Thoracic spine shows fairly normal alignment of the vertebra. There is no compression fracture. Thora cic spinal cord has normal signal pattern. There is no thoracic spinal stenosis. There is no paraspin al mass. Posterior elements are intact. There is minor degenerative spur formation in the thoracic sp ine. There is no pathologic enhancement. The lumbar vertebra have normal alignment. There is narrowing at L5-S1 disc space. There is minimal p osterior disc bulging at L4-5 and L5-S1. There is developmentally adequate spinal canal. There is no spinal stenosis. Lumbar nerve roots appear fairly normal. There is no significant neural foraminal na rrowing. There is no compression fracture. There is 2 cm sacral cyst at the S2-S3 level. I see no foc al bone destruction. There is no lumbar paraspinal mass. The sacroiliac joints appear intact. Contras t images show no pathologic enhancement. IMPRESSION: There are some mild degenerative changes in the thoracic and lumbar spine. No spinal stenosis. No augustin dence of any significant disc herniation. The cervical spine shows C6-7 mild 6.5 mm spinal stenosis. Multilevel cervical spondylotic changes. N o fracture.
== END | disposition home or self-care (01) ==
LOC: RADMRIMAIN 13:34
PROVIDERS: ATTEND Orthopaedic Surgery
DX: M48.02 Spinal stenosis, cervical region (principal); M47.815 Spondylosis without myelopathy or radiculopathy, thoracolumbar region
CPT/HCPCS: 72156; 72157; 72158; A9585

== ENCOUNTER 2021-03-21 08:53 | Day surgery (SDC) | payer BC ==
[2021-03-20 11:44] VITALS: BMI 24.0
[~2021-03-21 08:53] MED LIST changes: -DEXAMETHASONE SOD PHOSPHATE 4 MG/ML 1 ML VIAL IV ONE; -LIDOCAINE 1% (10MG/ML) FOR IV START INTRADERMA PRN; -MIDAZOLAM 2 MG/2 ML VIAL IV PRN; -ONDANSETRON 4 MG/2 ML VIAL IVP ONE
[2021-03-21 09:16] VITALS: RESP 16; TEMP 97.2
[2021-03-21] MEDS ORDERED: LACTATED RINGERS 1,000 ML IV SCH (09:45)
[2021-03-21] MEDS ORDERED: DEXAMETHASONE SOD PHOSPHATE 10 MG/ML 1 ML VIAL ONE (09:46)
[2021-03-21] MEDS ORDERED: MIDAZOLAM 2 MG/2 ML VIAL ONE (09:46)
[2021-03-21] MEDS ORDERED: fentaNYL (PF) 50 MCG/ML 2 ML AMP ONE (09:46)
[2021-03-21] MEDS ORDERED: IOPAMIDOL M200 10 ML VIAL ONE (09:46)
--- NOTE | 2021-03-21 10:07 | P.PCN ---
Date of Procedure: 03/21/21 Description of Procedure: Pre- and Post-operative Diagnosis: Cervical radiculopathy Procedure: C5-C6 Inter-Laminar Cervical Epidural Steroid Injection under biplanar fluoroscopy Surgeon: Ramu Pederson Anesthesia: Local: 1% Lidocaine, IV sedation : Versed and fentanyl. Complications: None. Estimated blood loss: None Specimens removed: None Fluoroscopic image: saved to electronic medical records. Indications for Procedure: The patient has been suffering from neck pain and pain radiating to the upper extremity, more worse on the left side . Inadequate pain control with pharmacologic regimen. An inter-laminar approach cervical epidural steroid injection was scheduled for the patient by Dr. Whitlock. Procedure and Findings: The patient was seen and examined in the holding area. The written informed consent was obtained after explaining the risks, benefits, alternatives of the procedure to the patient. The patient was brought to the procedure room and was placed in the prone position on the operating table. A pillow was placed under the upper chest. Standard anesthesia monitoring was done through out the procedure. Timeout was completed. The skin preparation was done with ChloraPrep 1 and draping was done in usual sterile fashion. Sterile technique was observed throughout the procedure. Under fluoroscopic guidance, the C5-C6 inter-laminar space was identified. 3 ml of 1% Lidocaine was injected with a 25 gauge needle to achieve adequate local anesthesia of the skin and subcutaneous tissue. A 20 gauge, 3.5 inch Tuohy type epidural needle was placed and gradually advanced up to the epidural space using loss of resistance technique and fluoroscopic guidance. Lateral, oblique fluoroscopic views confirm the needle position. No paresthesia was noted. A negative aspiration was confirmed and then 1 ml of Isovue-200 was injected. A good dye spread was seen in the epidural space and it was negative for any intrathecal, intraneural or intravascular spread. A total of 5 ml solution containing 20 mg Dexamethasone, and 3 ml preservative-free Normal Saline was injected slowly with intermittent aspiration. The needle was removed intact, area was cleaned and bandage was applied. Disposition : The patient tolerated the procedure very well. The patient was transferred to the recovery room and remained stable until discharged home. The patient was given detailed discharge instructions for bleeding, infection, increased pain at the injection site, and was advised to seek immediate medical attention should significant side effects develop. The patient will be followed up with our Pain Clinic within 4 weeks for follow-up visit.
[2021-03-21] MEDS ORDERED: LACTATED RINGERS 1,000 ML IV ONE ×2 (10:10)
--- NOTE | 2021-03-21 10:23 | FL ---
EXAMINATION TYPE: FL guided pain mgmt statistic DATE OF EXAM: 03/21/2021 CLINICAL HISTORY: Neck pain. TECHNIQUE: Fluoroscopy. COMPARISON: None. FINDINGS: Fluoroscopic guidance was provided during pain relief procedure performed by Dr. Stacy . A total of 9 seconds of fluoroscopic time was utilized during the procedure and 3 spot images are a cquired. Images acquired shows needle localization with contrast injection near level of the cervico thoracic junction. IMPRESSION: As Above.
[2021-03-21 10:24] VITALS: BP 130/68; PULSE 78
[2021-03-21] MEDS ORDERED: IV FLUID CONTINUATION 1,000 ML IV ONE (10:35)
== END 2021-03-21 10:35 | disposition home or self-care (01) ==
LOC: ORPAIN 08:53
DX: M54.12 Radiculopathy, cervical region (principal); Z88.5 Allergy status to narcotic agent; Z88.2 Allergy status to sulfonamides; Z91.040 Latex allergy status; Z98.890 Other specified postprocedural states
CPT/HCPCS: 62321; J2250; J1100; J3010; Q9966; 99152

== ENCOUNTER → 2021-04-19 | Outpatient (CLI) | payer BC ==
[2021-04-19 08:38] VITALS: BP 144/75; PULSE 85; RESP 18; TEMP 97.5
--- NOTE | 2021-04-19 08:57 | P.PN ---
Otto Medrano is a 61-year-old female presenting to clinic today for follow-up appointment after a cervical epidural steroid injection at C5-C6. She is a patient of Dr. Whitlock. She has a history of cervical spondylosis with facet arthropathy without myelopathy and cervical radiculopathy. Since injection she is reported greater than 80% pain relief in her neck. She reports that she no longer has muscle spasms and she has not used her Flexeril since the procedure. Today she is reporting that her pain is 5 out of 10 at a 0-10 scale. Pain is increased when she tilts her head back. It's better with rest. She is having some numbness that radiates down into her hands left more specifically than right. She would like to have a repeat cervical epidural steroid injection at C5-C6. Objective - Exam Physical Examinations : -Constitutiona : Cooperative , not in acute distress . -HEENT : nech : supple , no Lymphadenopathy , normal thyroid size . : eyes : no ptosis , no icterus, no photophobia . - neurologic : Cranial nerve II to XII intact , no focal neurological deffecit . -psychatric : alert , oriented X 3 , appropriate affect , intact judgment and insight . -Lymphatic : no Lymphadenopathy . - musculoskeltal : Cervical Spine motor stregnth in the deltoid and biceps, normal right side , normal Left side motor stregnth biceps and the wrist extensors normal right side ,normal left side . motor stregnth in the triceps muscle . normal Right side , normal Left side deep tendon reflexes normal at the biceps , normal at Brachioradialis , normal at triceps. cervical facet loading test: Positive Bilaterally Spurling test= positive Right , positive left. Neck distraction test= positive Right , positive left. Theresa sign= negative Assessment and Plan Assessment: Assessment and plan Assessment: Cervical spine spondylosis and facet arthropathy without myelopathy Cervical radiculopathy Plan: Patient could benefit from second cervical epidural steroid injection at C5-C6. Schedule follow-up appointment in 4 weeks to evaluate procedures effectiveness Dr. Klein was available by phone for consultation during this visit. - PQRS measures = - Patient's medications are documented in the chart. -Tobacco use is positive and intervention given -Patient's has not received pneumococcal vaccine. -Advanced care planning discussed, patient not eligible. -Opiate contract at signed. -Pain positive and follow-up visit/procedure is scheduled. -Patient's blood pressure measured 144/75 , and documented in the record ,and patient will follow up with the primary care. -Patient was not identified as an unhealthy alcohol user Time with Patient: Less than 30
== END ==
LOC: PNWHC3 08:27
PROVIDERS: ATTEND Student in an Organized Health Care Education/Training Program
DX: M47.22 Other spondylosis with radiculopathy, cervical region (principal); Z88.2 Allergy status to sulfonamides; Z88.5 Allergy status to narcotic agent; Z91.040 Latex allergy status; F17.200 Nicotine dependence, unspecified, uncomplicated
CPT/HCPCS: 99211

== ENCOUNTER 2021-06-06 08:36 | Day surgery (SDC) | payer BC ==
[2021-05-31 09:47] VITALS: BMI 25.0
[2021-06-06 09:26] VITALS: RESP 16; TEMP 96.8
[2021-06-06] MEDS ORDERED: fentaNYL (PF) 50 MCG/ML 2 ML AMP ONE (10:12)
[2021-06-06] MEDS ORDERED: IOPAMIDOL M200 10 ML VIAL ONE (10:12)
[2021-06-06] MEDS ORDERED: DEXAMETHASONE SOD PHOSPHATE 10 MG/ML 1 ML VIAL ONE (10:12)
[2021-06-06] MEDS ORDERED: MIDAZOLAM 2 MG/2 ML VIAL ONE (10:12)
[2021-06-06] MEDS ORDERED: LACTATED RINGERS 1,000 ML IV SCH (10:15)
--- NOTE | 2021-06-06 10:23 | P.PCN ---
Date of Procedure: 06/06/21 Description of Procedure: Pre- and Post-operative Diagnosis: Cervical radiculopathy, and cervical spine stenosis Procedure: C5-C6 Inter-Laminar Cervical Epidural Steroid Injection under biplanar fluoroscopy #2 Surgeon: Ramu Pederson Anesthesia: Local: 1% Lidocaine, IV sedation : Versed, 1 mg, and fentanyl 50 g. Complications: None. Estimated blood loss: None Specimens removed: None Fluoroscopic image: saved to electronic medical records. Indications for Procedure: The patient has been suffering from neck pain and pain radiating to the upper extremity . Patient had more than 80% pain relief with the previous epidural steroid injection for one month duration , which helped pain radiating to left upper extremity. Inadequate pain control with pharmacologic regimen. Repeat inter-laminar approach cervical epidural steroid injection was scheduled for the patient. Procedure and Findings: The patient was seen and examined in the holding area. The written informed consent was obtained after explaining the risks, benefits, alternatives of the procedure to the patient. The patient was brought to the procedure room and was placed in the prone position on the operating table. A pillow was placed under the upper chest. Standard anesthesia monitoring was done through out the procedure. Timeout was completed. The skin preparation was done with ChloraPrep 1 and draping was done in usual sterile fashion. Sterile technique was observed throughout the procedure. Under fluoroscopic guidance, the C5-C6 inter-laminar space was identified. 3 ml of 1% Lidocaine was injected with a 25 gauge needle to achieve adequate local anesthesia of the skin and subcutaneous tissue. A 20 gauge, 3.5 inch Tuohy type epidural needle was placed and gradually advanced up to the epidural space using loss of resistance technique and fluoroscopic guidance. Lateral, oblique fluoroscopic views confirm the needle position. No paresthesia was noted. A negative aspiration was confirmed and then 1 ml of Isovue-200 was injected. A good dye spread was seen in the epidural space and it was negative for any intrathecal, intraneural or intravascular spread. A total of 6 ml solution containing 20 mg Dexamethasone, and 4 ml preservative-free Normal Saline was injected slowly with intermittent aspiration. The needle was removed intact, area was cleaned and bandage was applied. Disposition : The patient tolerated the procedure very well. The patient was transferred to the recovery room and remained stable until discharged home. The patient was given detailed discharge instructions for bleeding, infection, increased pain at the injection site, and was advised to seek immediate medical attention should significant side effects develop. The patient will be followed up with our Pain Clinic within 4 weeks for follow-up visit.
[2021-06-06] MEDS ORDERED: IV FLUID CONTINUATION 750 ML IV ONE (10:25)
--- NOTE | 2021-06-06 10:49 | FL ---
Fluoroscopy History: Cervical epidural injection. CERV EPI INJ. 5 SEC FL. 3 IMAGES SENT
[2021-06-06 10:50] VITALS: BP 130/66; PULSE 65
== END 2021-06-06 11:00 | disposition home or self-care (01) ==
LOC: ORPAIN 08:36
DX: M48.02 Spinal stenosis, cervical region (principal); M54.12 Radiculopathy, cervical region; F32.A Depression, unspecified; M19.90 Unspecified osteoarthritis, unspecified site; Z90.710 Acquired absence of both cervix and uterus; Z90.49 Acquired absence of other specified parts of digestive tract; Z98.890 Other specified postprocedural states; Z79.899 Other long term (current) drug therapy; Z88.2 Allergy status to sulfonamides
CPT/HCPCS: 62321

== ENCOUNTER → 2021-07-12 | Outpatient (CLI) | payer BC | END | disposition home or self-care (01) | LOC: LABWHC1 10:57 | PROVIDERS: ATTEND Family Medicine | DX: Z20.822 Contact with and (suspected) exposure to COVID-19 (principal) | CPT/HCPCS: 87502; U0003; C9803 ==

== ENCOUNTER → 2021-08-29 | Outpatient (CLI) | payer BC ==
--- NOTE | 2021-08-29 09:19 | CT ---
EXAMINATION TYPE: CT sinus wo con DATE OF EXAM: 08/29/2021 COMPARISON: None available HISTORY: Chronic sinusitis CT DLP: 603.0 mGycm. Automated Exposure Control for Dose Reduction was Utilized. TECHNIQUE: CT scan of the sinuses is performed without contrast, axial images are obtained, coronal r eformatted images are also reviewed. FINDINGS: Previous functional endoscopic sinus surgery with bilateral maxillary antrostomy, uncinectomy and par tial ethmoidectomy. Mild periportal mucosal thickening of the nasal fossa. Rather central bony nasal septum. Paradoxical middle turbinates. Mucosal thickening of the right middle meatus. Clear left middle meatus and bilateral antrostomy. No significant mucosal thickening of the maxillary sinuses. Unremarkable frontal sinus and sphenoid sinu s. Patent sphenoethmoidal recesses. Clear visualized ethmoid air cells. Unremarkable visualized portion of the brain and orbits. IMPRESSION: Postsurgical changes as described above. No significant mucosal thickening of the paranas al sinuses. Mild polypoidal mucosal thickening of the nasal fossa as described above.
== END | disposition home or self-care (01) ==
LOC: RADCTMAIN 08:05
PROVIDERS: ATTEND Otolaryngology
DX: J34.89 Other specified disorders of nose and nasal sinuses (principal)
CPT/HCPCS: 70486

== ENCOUNTER → 2021-10-03 | Outpatient (CLI) | payer BC ==
--- NOTE | 2021-10-03 14:36 | XR ---
EXAMINATION TYPE: XR chest 2V DATE OF EXAM: 10/03/2021 COMPARISON: Chest x-ray October 19, 2020 HISTORY: Presurgical study. Cough. TECHNIQUE: Frontal and lateral views of the chest are obtained. FINDINGS: There is no suspicious new focal air space opacity, pleural effusion, or pneumothorax seen . The cardiac silhouette size remains within normal limits. The osseous structures are intact. Cho lecystectomy clips noted on lateral view. IMPRESSION: No acute process. No significant change from prior.
--- NOTE | 2021-10-03 15:26 | XR ---
EXAMINATION TYPE: XR soft tissue neck DATE OF EXAM: 10/03/2021 COMPARISON: MRI cervical spine January 07, 2021 HISTORY: Lymphadenopathy per order. Pain. TECHNIQUE: 2 view soft tissue neck. FINDINGS: Patent nasopharyngeal and oropharyngeal airway. No suspicious prevertebral soft tissue swel ling. Region of epiglottis and vallecula appear within normal limits. No suspicious narrowing of the subglottic airway on frontal view. Persistent loss of normal cervical curvature with grade 1 retrolis thesis C4 on C5. Moderate disc space narrowing and spurring C4-C5 and C5-C6 levels redemonstrated. Ov erlying soft tissue is unremarkable. IMPRESSION: As above.
== END | disposition home or self-care (01) ==
LOC: RADXRMAIN 09:14
PROVIDERS: ATTEND Family Medicine
DX: Z01.818 Encounter for other preprocedural examination (principal); R05.9 Cough, unspecified; M43.12 Spondylolisthesis, cervical region; M50.822 Other cervical disc disorders at C5-C6 level; M43.8X2 Other specified deforming dorsopathies, cervical region
CPT/HCPCS: 70360; 71046

== ENCOUNTER → 2022-03-08 | Outpatient (CLI) | payer BC ==
--- NOTE | 2022-03-12 10:41 | CT ---
EXAMINATION TYPE: CT facial bones wo/w con DATE OF EXAM: 03/08/2022 COMPARISON: CT sinus study August 29, 2021 HISTORY: Jaw pain CT DLP: 1316 mGycm Automated exposure control for dose reduction was used. CONTRAST: CT scan of the facial bones is performed without and with IV Contrast, patient injected with 70 ml mL of Isovue 300. TECHNIQUE: CT scan of the facial bones are performed sinus CT August 29, 2021, axial images are obtain ed, coronal reformatted images are also reviewed. FINDINGS: Nasal bones are intact. Zygomatic arches are intact bilaterally. The mandible is intact. Te mporomandibular joints are maintained bilaterally. The maxillary is grossly intact. Artifact from mul tiple cavitary fillings and crowns in the bilateral maxillary and mandibular teeth is redemonstrated making evaluation at this level slightly suboptimal. The pterygoid plates are intact. Orbital floors and rudd are intact. The globes are intact bilaterally. The surgically treated ostiomeatal complex remains patent bilaterally. The paranasal sinuses remain g rossly clear. Metallic BB placed at level of palpable abnormality right maxillary level axial image 51. No obvious solid or cystic mass or fluid collection is seen at this level. The right parotid gland appears symme tric to the left side and unremarkable. IMPRESSION: Source of patient's right-sided jaw pain not identified
== END | disposition home or self-care (01) ==
LOC: RADCTMAIN 07:37
PROVIDERS: ATTEND Family Medicine
DX: R68.84 Jaw pain (principal)
CPT/HCPCS: 70488; Q9967

== ENCOUNTER → 2022-03-28 | Outpatient (CLI) | payer BC ==
[2022-03-28 14:37] VITALS: BP 138/79; PULSE 85; RESP 18; TEMP 98.4
--- NOTE | 2022-03-28 14:42 | P.PAINPG ---
PQRS Measure Charge Sheet Comment: A 62 yr old female with a history of severe and chronic neck pain secondary to cervical degenerative disc diseases and spondylosis with facet arthropathy without myelopathy presents today for evaluation. Pain level is currently at 10 /10 in intensity, constant, localized in the mid to lower cervical spine, sharp in character w shooting towards the BL shoulders and BUEs, L>R. Pain is provoked by hyperextension. Pain is alleviated with PT x 10 wks in 2020, heat, ice, meds (Ibu, Tyl, Flexeril), repositioning and rest. Interventional pain procedures completed include EDUAR C5-C6 x2 Patient is currently on Tylenol OTC, Ibuprofen OTC, Flexeril prn Patient denies any side effects of the medication(s), denies excessive drowsiness or sleepiness, denies suicidal ideation and reports that the current pain medication is helping to control the pain and improve activities of daily living. Patient denies any motor or sensory deficits. Patient denies any fever or night sweats, denies any change in the bowel movements or urination. Physical Examination: -Constitutional: Cooperative. Not in acute distress . - Neurologic: Cranial nerve II to XII intact. No focal neurological deficits. - Psychatric: Alert & oriented x 3. Matching mood & appropriate affect. Judgment and insight intact. - Musculoskeletal: Cervical spine: Muscle bulk/ tone/ strength in the bilateral upper extremities normal Vertebral body tenderness to palpation over Spurling test positive Distraction test positive Facet pain positive over BL C2, C3, C3-C4 w facet palpation Thoracic spine Muscle bulk / tone/ strength in the bilateral paraspinal muscles normal Vertebral body tender to palpation over Facet loading test positive Lumbar spine: Motor bulk/ tone/ strength lower extremities , thigh and legs : 5/5 Deep tendon reflexes : Normal Knee Jerk. Normal Ankle Jerk . Vertebral body tenderness to palpation over Lumbar Facet Loading Test positive Straight Leg Raise: positive at 30 degrees right side/ left side Gaenslen's Test positive Sacral spine : Severe tenderness over the Sacroiliac joint: right side / left side Range of motion: Flexion of the lumbar spine <60 degrees Range of motion: Extension of the lumbar spine <20 degrees Gaenslen's Test positive Markos's Test positive Franklin test: positive right side / left side Thigh Thrust Test Sacral Thrust Test Assessment and plan: Chronic neck pain secondary to cervical degenerative disc disease , spondylosis with facet arthropathy without myelopathy Recommendation of BL MBB C2-C3, C3-C4 #1. May need a series of injections, up until RFA, for optimal pain relief. Risks, benefits of procedure discussed and pt verbalized understanding. Denies anticoagulant use or medical history of diabetes. All patient questions answered I have spent less than 30 minutes on patient care today. Dr Klein was available by phone for the evaluation of this patient. The time was used to review the medical records including relevant urine studies and Prescription history (MAPs), review of the available imaging, evaluation and examination of the patient, coordination of care with the medical staff and if applicable referring physicians, as well as creation of the medical record - Pain Location Bilateral Neck Non-Pharmacological Interventions: Heat, Ice, Inactivity, Physical Therapy, Position/Reposition Pharmacological Interventions: Epidural, PRN Medication PQRS Narrative: Smoking Status Current some day smoker Hx Alcohol Use (MH) Yes Home Medications: Ambulatory Orders Cyclobenzaprine [Flexeril] 10 mg PO HS PRN 03/20/21 Sertraline HCl [Zoloft] 25 mg PO DAILY 05/31/21 Controlled Substance Measures - Controlled Substance Measures Is patient prescribed a controlled substance at discharge?: No
== END | disposition home or self-care (01) ==
LOC: PNWHC3 14:14
PROVIDERS: ATTEND Specialist
DX: M48.02 Spinal stenosis, cervical region (principal)
CPT/HCPCS: 99211

== ENCOUNTER → 2022-05-27 | Outpatient (CLI) | payer BC ==
--- NOTE | 2022-05-27 13:26 | MR ---
EXAMINATION TYPE: MR cervical spine wo con DATE OF EXAM: 05/27/2022 INDICATION: Patient age:Female; 62 years old; Reason for study: M542; PHH. Prior on synapse, neck pain , no injury , HAs, BUE weakness COMPARISON: 01/07/2021, 11/28/2020 and 04/02/2013 TECHNIQUE: Multi planar, multi sequence imaging was performed utilizing: T1-weighted, T2-weighted, an d turbo inversion recovery imaging of the cervical spine. IV Contrast: None FINDINGS: Alignment: The cervical vertebral bodies have preserved heights. Alignment is within normal limits gi shannan patient positioning. Bones: No bony edema on inversion recovery sequences. Multilevel degenerative disc disease is noted a nd most pronounced at the C7 vertebral levels. T1 vertebral body high T2 signal vertebral body probab le hemangioma stable from 11/28/2020. Cord: The spinal cord is unremarkable with regards to their signal intensity and morphology. Discs: Intervertebral disc signal is maintained. C2-C3: No significant disc pathology. The spinal canal is patent. No neural foraminal stenosis. C3-C4: No significant disc pathology. The spinal canal is patent. No neural foraminal stenosis. C4-C5: A disc osteophyte complex is present which minimally narrows the ventral subarachnoid space. Bilateral facet and uncovertebral joint arthropathy are present with moderate left and mild right ne ural foraminal stenosis. C5-C6: A disc osteophyte complex is present with mild to moderate spinal canal stenosis. Bilateral f acet and uncovertebral joint arthropathy are present with moderate bilateral neural foraminal stenosi s. C6-C7: A disc osteophyte complex is present with moderate spinal canal stenosis. Bilateral facet and uncovertebral joint arthropathy are present with moderate to severe left and moderate right bilatera l neural foraminal stenosis. C7-T1: No significant disc pathology. The spinal canal is patent. No neural foraminal stenosis. Other: None. IMPRESSION: Multilevel disc degeneration with associated osteoarthritic changes worse at C5 C6 C7 moderate spinal canal stenosis at C6-C7 and mild to moderate C5-C6. Additionally there is C6-C7 moderate to severe b ilateral neural foraminal stenosis on the left and moderate right.
== END | disposition home or self-care (01) ==
LOC: RADMRIMAIN 12:45
PROVIDERS: ATTEND Family Medicine
DX: M48.02 Spinal stenosis, cervical region (principal); M50.322 Other cervical disc degeneration at C5-C6 level; M47.812 Spondylosis without myelopathy or radiculopathy, cervical region; M99.71 Connective tissue and disc stenosis of intervertebral foramina of cervical region
CPT/HCPCS: 72141

== ENCOUNTER → 2022-06-05 | Outpatient (CLI) | payer BC ==
[2022-06-05 22:48] LABS: Basophils # (A) 0.06 X 10*3/uL (0.00-0.10); Basophils % (A) 0.5 %; Eosinophils # (A) 0.17 X 10*3/uL (0.04-0.35); Eosinophils % (A) 1.4 %; HCT 36.5 % (37.2-46.3); HGB 11.9 g/dL (12.0-15.0); Immature Grans, Automated 0.4 %; Lymphocytes # (A) 4.34 X 10*3/uL (0.90-5.00); Lymphocytes % (A) 35.7 %; MCH 30.2 pg (27.0-32.0); MCHC 32.6 g/dL (32.0-37.0); MCV 92.6 fL (80.0-97.0); Mean Platelet Volume 9.6 fL (9.5-12.2); Monocytes # (A) 0.85 X 10*3/uL (0.20-1.00); NRBC Per 100 WBC 0 /100 WBCS (0.0-0.0); Neutrophils # (A) 6.67 X 10*3/uL (1.80-7.70); Platelet Count 386 X 10*3/uL (140-440); RBC 3.94 X 10*6/uL (4.10-5.20); RDW 13.3 % (11.5-14.5); WBC 12.14 X 10*3/uL (4.50-10.00)
== END | disposition home or self-care (01) ==
LOC: LABWHC1 16:25
PROVIDERS: ATTEND Nurse Practitioner Family
DX: D48.5 Neoplasm of uncertain behavior of skin (principal); L82.1 Other seborrheic keratosis; L82.0 Inflamed seborrheic keratosis; L20.89 Other atopic dermatitis
CPT/HCPCS: 36415; 85025

== ENCOUNTER → 2022-06-05 | Outpatient (CLI) | payer BC ==
--- NOTE | 2022-06-06 09:52 | MM ---
Reason for Exam: Screening (asymptomatic). Last mammogram was performed 2 year(s) and 0 month(s) ago. Patient History: Menarche at age 18. First Full-Term at age 28. Other cancer. 2006, Bilateral Implants. Last menstrual period: Risk Values: Regi 5 year model risk: 1.5%. NCI Lifetime model risk: 7.2%. Prior Study Comparison: 03/20/2013 Screening Mammogram, Unknown. 03/25/2013 Screening Mammogram, Unknown. 05/27/2020 Bilateral Screening Mammogram, [facility]. Tissue Density: The breast tissue is extremely dense which could obscure a lesion on mammography. Findings: Analyzed By CAD. Pattern appears symmetrical and stable. Benign coarse calcifications are present. Breast prostheses are present bilaterally. No suspicious groups of microcalcifications, spiculated or lobular masses, architectural distortion or other secondary signs of malignancy are mammographically apparent. Overall Assessment: Benign, BI-RAD 2 Management: Screening Mammogram of both breasts in 1 year. A negative mammogram report should not preclude additional follow up of suspicious palpable abnormalities. Patient should continue monthly self breast exam. A clinical breast exam by your physician is recommended on an annual basis and results should be correlated with mammographic findings. Electronically signed and approved by: Roberto Arambula D.O. Radiologis
== END | disposition home or self-care (01) ==
LOC: RADMAMWWP 16:01
PROVIDERS: ATTEND Obstetrics & Gynecology
DX: Z12.31 Encounter for screening mammogram for malignant neoplasm of breast (principal)
CPT/HCPCS: 77067

== ENCOUNTER 2022-06-08 09:27 | Day surgery (SDC) | payer BC ==
[2022-06-08 10:08] VITALS: RESP 16; TEMP 96.9
[2022-06-08] MEDS ORDERED: ONDANSETRON 4 MG/2 ML VIAL ONE (10:12)
[2022-06-08] MEDS ORDERED: ONDANSETRON 4 MG/2 ML VIAL IVP ONE (10:16)
[2022-06-08 10:28] LABS: Glucose,Whole Blood 90 mg/dL (70-110)
[2022-06-08] MEDS ORDERED: DEXAMETHASONE SOD PHOSPHATE 10 MG/ML 1 ML VIAL ONE (11:25)
[2022-06-08] MEDS ORDERED: MIDAZOLAM 2 MG/2 ML VIAL ONE (11:25)
[2022-06-08] MEDS ORDERED: fentaNYL (PF) 50 MCG/ML 2 ML AMP ONE (11:25)
[2022-06-08] MEDS ORDERED: ROPIVACAINE 5 MG/ML 20 ML AMPULE ONE (11:25)
--- NOTE | 2022-06-08 11:57 | P.PCN ---
Date of Procedure: 06/08/22 Surgeon: Jaylin Ennis Pathology: none sent Condition: stable Disposition: PACU Description of Procedure: PREOPERATIVE DIAGNOSIS: Cervical Spondylosis with Facet Arthropathy.without myelopathy POSTOPERATIVE DIAGNOSIS: Cervicogenic headache ,Cervical Spondylosis Facet Arthropathy. Without myelopathy PROCEDURES: Diagnostic Bilateral medial branch block with fluoroscopic guidance for levels C2 -C3, C3 - C4 and third occipital nerve ANESTHESIA: Local with 1% lidocaine; IV sedation with Versed by the anesthesia Department. EBL: Minimal PROCEDURE INDICATION: The patient with neck pain secondary to cervical arthropathy unresponsive to more conservative treatments. PROCEDURE DESCRIPTION / TECHNIQUE: The patient was seen and identified in the preoperative area. Risks, benefits, complications, and alternatives were discussed with the patient, the patient agreed to proceed with the procedure and signed the consent. IV was started. Vital signs remained stable throughout the procedure. Patient was taken to the OR and time out was completed. The patient was placed in the supine position on the procedure table. . The cervical area was prepped with chloraprep and draped in the usual sterile fashion. Critical pause was taken. Vital signs were closely monitored during the procedure. Conscious sedation was used during the procedure to decrease patients anxiety. Using cross-table lateral fluoroscopy, the centers of the trapezoid of C2,C3, third occipital nerve and the middle of the joint line between C2 and C3 and C4 were identified, marked, and localized with 1% lidocaine 1 ml at each level for skin and Sub Q infiltrations . Subsequently, a 25 G 3.5 inch spinal needle was advanced guided by fluoroscopy to the target points mentioned above. Subsequently, 4 ml of preservative-free Ropivacaine 0.5% mixed with Dexamethasone 10 mg and half ml of the mixture was injected at each level after negative aspiration for blood and CSF. Wrens were then removed intact the same procedure was repeated ont the left side in the same manner. COMPLICATIONS: No acute complications. COMMENTS: DISPOSITION / PLANS: The patient was placed in a supine position and transferred to the recovery area in a stable condition for observation and was discharged from the recovery room after meeting discharge criteria. Home discharge instructions given to the patient by the staff. The patient was reexamined prior to discharge. The patient will schedule a follow up in the clinic in 2-4 weeks.
[2022-06-08] MEDS ORDERED: IV FLUID CONTINUATION 1,000 ML IV ONE (12:00)
[2022-06-08 12:19] VITALS: BP 122/70; PULSE 74
--- NOTE | 2022-06-08 12:37 | FL ---
Intraoperative/procedural fluoroscopic services were provided for cervical facet block. Total fluoros copy time is 17 seconds with a total of 7 submitted images to PACS. Please see the operative note for further details.
== END 2022-06-08 12:32 | disposition home or self-care (01) ==
LOC: ORPAIN 09:27
PROVIDERS: ATTEND Anesthesiology
DX: M47.812 Spondylosis without myelopathy or radiculopathy, cervical region (principal); G44.86 Cervicogenic headache; F17.200 Nicotine dependence, unspecified, uncomplicated; F41.8 Other specified anxiety disorders; K91.89 Other postprocedural complications and disorders of digestive system; Z79.899 Other long term (current) drug therapy; Z91.040 Latex allergy status; Z88.5 Allergy status to narcotic agent; Z88.2 Allergy status to sulfonamides; Z98.82 Breast implant status; Z90.49 Acquired absence of other specified parts of digestive tract; Z90.89 Acquired absence of other organs; Z98.890 Other specified postprocedural states; Z98.51 Tubal ligation status
CPT/HCPCS: 64490; 64491; J2250; J1100; J2405; J3010; J2795

== ENCOUNTER → 2022-06-25 | Outpatient (CLI) | payer BC ==
[2022-06-25 15:31] VITALS: BP 158/68; PULSE 85; RESP 18; TEMP 98.3
--- NOTE | 2022-06-25 15:46 | P.PAINPG ---
PQRS Measure Charge Sheet Comment: A 62 yr old inpatient female with a history of severe and chronic neck pain secondary to cervical DDD and spondylosis with facet arthropathy without myelopathy presents today for evaluation s/p BL facet block of the medial branches C2-C3, C3-C4 and 3rd O.N. Pt states she experienced 0 % pain relief s/p procedure. Pain level is provoked at 7 /10 in intensity, constant, localized in the cervical spine, achy in character without radiation of pian. Pain is provoked by any cervical movement. Pain is alleviated with medications (Flexeril), injections in the past, ice, heat, PT yearly for 20 years, repositioning and rest. Interventional pain procedures completed include BL C2-C4 x1, NATALIA C5-C6 x2. Patient is currently on Flexeril Patient denies any side effects of the medication(s), denies excessive drowsiness or sleepiness, denies suicidal ideation and reports that the current pain medication is helping to control the pain and improve activities of daily living. Patient denies any motor or sensory deficits. Patient denies any fever or night sweats, denies any change in the bowel movements or urination. Physical Examination: -Constitutional: Cooperative. Not in acute distress . - Neurologic: Cranial nerve II to XII intact. No focal neurological deficits. - Psychatric: Alert & oriented x 3. Matching mood & appropriate affect. Judgment and insight intact. - Musculoskeletal: Cervical spine: Muscle bulk/ tone/ strength in the bilateral upper extremities normal Vertebral body tenderness to palpation over C6 Spurling test positive Distraction test positive Facet loading test positive Thoracic spine Muscle bulk / tone/ strength in the bilateral paraspinal muscles normal Vertebral body tender to palpation over Facet loading test positive Lumbar spine: Motor bulk/ tone/ strength lower extremities , thigh and legs : 5/5 Deep tendon reflexes : Normal Knee Jerk. Normal Ankle Jerk . Vertebral body tenderness to palpation over Lumbar Facet Loading Test positive Straight Leg Raise: positive at 30 degrees right side/ left side Gaenslen's Test positive Sacral spine : Severe tenderness over the Sacroiliac joint: right side / left side Range of motion: Flexion of the lumbar spine <60 degrees Range of motion: Extension of the lumbar spine <20 degrees Gaenslen's Test positive Franklin test: positive right side / left side Thigh Thrust Test Sacral Thrust Test Assessment and plan: Chronic neck pain secondary to cervical DDD, spondylosis with facet arthropathy without myelopathy Pt did not experience sufficient pain relief. She will follow up w her orthopedic surgeon to explore additional treatment options. All patient questions answered I have spent less than 30 minutes on patient care today. Dr Klein was available by phone for the evaluation of this patient. The time was used to review the medical records including relevant urine studies and Prescription history (MAPs), review of the available imaging, evaluation and examination of the patient, coordination of care with the medical staff and if applicable referring physicians, as well as creation of the medical record - Pain Location Neck Non-Pharmacological Interventions: Heat, Ice, Physical Therapy, Position/Reposition Pharmacological Interventions: Scheduled Medication PQRS Narrative: Smoking Status Current some day smoker Hx Alcohol Use (MH) Yes Home Medications: Ambulatory Orders Cyclobenzaprine [Flexeril] 10 mg PO HS PRN 03/20/21 Sertraline HCl [Zoloft] 50 mg PO DAILY 05/31/21 Cetirizine HCl [Zyrtec] 10 mg PO DAILY 06/08/22 Controlled Substance Measures - Controlled Substance Measures Is patient prescribed a controlled substance at discharge?: No
== END ==
LOC: PNWHC3 14:13
PROVIDERS: ATTEND Specialist
DX: M47.812 Spondylosis without myelopathy or radiculopathy, cervical region (principal); M50.30 Other cervical disc degeneration, unspecified cervical region; Z91.040 Latex allergy status; Z88.2 Allergy status to sulfonamides; Z88.5 Allergy status to narcotic agent; F17.210 Nicotine dependence, cigarettes, uncomplicated
CPT/HCPCS: 99211

== ENCOUNTER → 2022-06-30 | Outpatient (CLI) | payer BC ==
[2022-06-30 16:34] LABS: Chol/HDL Ratio 4.91 Ratio; LDL Cholesterol,Calculated 164.3 mg/dL (0.0-131.0); Thyroid Peroxidase Antibodies <9.0 U/mL (0.0-33.0)
== END | disposition home or self-care (01) ==
LOC: LABWHC1 09:00
PROVIDERS: ATTEND Family Medicine
DX: E78.5 Hyperlipidemia, unspecified (principal); R59.1 Generalized enlarged lymph nodes
CPT/HCPCS: 36415; 80061; 84481; 85652; 86140; 86376; 86800

== ENCOUNTER → 2022-07-07 | Outpatient (CLI) | payer BC ==
[2022-07-07 17:05] LABS: Basophils % (A) 0.9 %; Eosinophils % (A) 2.8 %; HCT 41.7 % (37.2-46.3); HGB 13.1 g/dL (12.0-15.0); Immature Grans, Automated 0.4 %; Lymphocytes # (A) 3.18 X 10*3/uL (0.90-5.00); Lymphocytes % (A) 29.9 %; MCH 29.8 pg (27.0-32.0); MCHC 31.4 g/dL (32.0-37.0); Mean Platelet Volume 9.8 fL (9.5-12.2); Monocytes # (A) 0.81 X 10*3/uL (0.20-1.00); Monocytes % (A) 7.6 %; NRBC Per 100 WBC 0 /100 WBCS (0.0-0.0); Neutrophils # (A) 6.19 X 10*3/uL (1.80-7.70); Neutrophils % (A) 58.4 %; Platelet Count 432 X 10*3/uL (140-440); RBC 4.39 X 10*6/uL (4.10-5.20); RDW 13.3 % (11.5-14.5); WBC 10.62 X 10*3/uL (4.50-10.00)
== END | disposition home or self-care (01) ==
LOC: LABWHC1 10:07 → EDSTATUS 11:54
PROVIDERS: ATTEND Nurse Practitioner Family
DX: R23.3 Spontaneous ecchymoses (principal)
CPT/HCPCS: 36415; 85025

== ENCOUNTER → 2022-08-29 | Outpatient (CLI) | payer BC ==
--- NOTE | 2022-08-31 16:05 | MR ---
EXAMINATION TYPE: MR neck wo/w con DATE OF EXAM: 08/29/2022 8:05 PM COMPARISON: 01/07/2021 MRI. CLINICAL INDICATION:Female, 62 years old with history of R22.1 SWELLING, MASS AND LUMP, NECK Patient states large palpable mass on back left side of neck TECHNIQUE: Multi planar, multi sequence imaging was performed of the neck soft tissues. MR contrast: IV Contrast: 6.5 cc Gadavist FINDINGS: The posterior left neck is without evidence for mass or organizing fluid collection. Subcutaneous tis sues appear within normal limits and predominantly contain lipomatous tissue. The glottis appears unremarkable. Several nonenlarged anterior chain lymph nodes are identified. T here is no evidence to suggest a soft tissue mass. The cervical vertebral bodies have preserved heights and alignment. Multilevel disc desiccation and anterior osteophytosis are present. The cervical spinal cord demonstrates a normal appearance. IMPRESSION: 1. No palpable marker was placed. 2. No evidence for soft tissue mass, Subcutaneous tissues of the posterior neck demonstrate fat with out obvious lipoma visualized.
== END | disposition home or self-care (01) ==
LOC: RADMRIMAIN 19:06
PROVIDERS: ATTEND Orthopaedic Surgery
DX: R22.1 Localized swelling, mass and lump, neck (principal)
CPT/HCPCS: 70543

== ENCOUNTER → 2022-08-31 | Outpatient (CLI) | payer BC ==
--- NOTE | 2022-08-31 16:55 | XR ---
EXAMINATION TYPE: XR chest 2V DATE OF EXAM: 08/31/2022 COMPARISON: 10/03/2021 HISTORY: Short of breath TECHNIQUE: 2 views FINDINGS: Heart and mediastinum are normal. Lungs are clear. Diaphragm is normal. Bony thorax is inta ct IMPRESSION: Normal chest. No change
== END | disposition home or self-care (01) ==
LOC: RADXRMAIN 16:28
PROVIDERS: ATTEND Family Medicine
DX: R06.00 Dyspnea, unspecified (principal)
CPT/HCPCS: 71046

== ENCOUNTER → 2022-09-06 | Outpatient (CLI) | payer BC ==
--- NOTE | 2022-09-06 14:47 | P.PAINPG ---
PQRS Measure Charge Sheet Comment: A 62 yr old female with a history of severe and chronic LBP secondary to cervical DDD and spondylosis with facet arthropathy without myelopathy presents today for evaluation. Pain level is provoked at 10/10 in intensity, constant, localized in the lumbar spine, achy in character w shooting towards the BLEs. Pain is provoked by weight bearing activity. Pain is alleviated with medications, injections, alternating ice & heat, chiropractic treatments in the past without relief, PT to start next week, home stretching regimen as tolerated, repositioning and rest. Interventional pain procedures completed include BL MBB C2-C4 x1, NATALIA C5-C6 x1 Patient is currently on Flexeril, Ibu Patient denies any side effects of the medication(s), denies excessive drowsiness or sleepiness, denies suicidal ideation and reports that the current pain medication is helping to control the pain and improve activities of daily living. Patient denies any motor or sensory deficits. Patient denies any fever or night sweats, denies any change in the bowel movements or urination. Physical Examination: -Constitutional: Cooperative. Not in acute distress . - Neurologic: Cranial nerve II to XII intact. No focal neurological deficits. - Psychatric: Alert & oriented x 3. Matching mood & appropriate affect. Judgment and insight intact. - Musculoskeletal: Cervical spine: Muscle bulk/ tone/ strength in the bilateral upper extremities normal Vertebral body tenderness to palpation over Spurling test positive Distraction test positive Facet loading test positive TTP Thoracic spine Muscle bulk / tone/ strength in the bilateral paraspinal muscles normal Vertebral body tender to palpation over Facet loading test positive TTP Lumbar spine: Motor bulk/ tone/ strength lower extremities , thigh and legs : 5/5 Deep tendon reflexes : Normal Knee Jerk. Normal Ankle Jerk . Vertebral body tenderness to palpation over L5 Lumbar Facet Loading Test positive Straight Leg Raise: positive at 30 degrees right side/ left side Gaenslen's Test positive Sacral spine : Severe tenderness over the Sacroiliac joint: right side / left side Range of motion: Flexion of the lumbar spine <60 degrees Range of motion: Extension of the lumbar spine <20 degrees Gaenslen's Test positive R / L Franklin test: positive right side / left side Thigh Thrust Test positive R / L Sacral Thrust Test positive R/ L Imaging: MRI with and without contrast of the lumbar spine from 01/07/21 reviewed Assessment and plan: Chronic LBP secondary to lumbar DDD, spondylosis with facet arthropathy without myelopathy Recommendation of NATALIA L5-S1 #1. May need a series of injections for optimal pain relief. Risks, benefits of procedure discussed and pt verbalized understanding. Admits to anticoagulant use or medical history of diabetes. Protocol for discontinuation/ continuation of medications arias procedure discussed. All questions answered. I have spent less than 30 minutes on patient care today. Dr Klein was available by phone for the evaluation of this patient. The time was used to review the medical records including relevant urine studies and Prescription history (MAPs), review of the available imaging, evaluation and examination of the patient, coordination of care with the medical staff and if applicable referring physicians, as well as creation of the medical record PQRS Narrative: Smoking Status Current some day smoker Hx Alcohol Use (MH) Yes Home Medications: Ambulatory Orders Cyclobenzaprine [Flexeril] 10 mg PO HS PRN 03/20/21 Sertraline HCl [Zoloft] 50 mg PO DAILY 05/31/21 Cetirizine HCl [Zyrtec] 10 mg PO DAILY 06/08/22 Controlled Substance Measures - Controlled Substance Measures Is patient prescribed a controlled substance at discharge?: No
[2022-09-06 14:54] VITALS: BP 123/70; PULSE 119; RESP 18; TEMP 98.1
== END ==
LOC: PNWHC3 14:12
PROVIDERS: ATTEND Specialist
DX: M47.26 Other spondylosis with radiculopathy, lumbar region (principal); M54.16 Radiculopathy, lumbar region; M48.061 Spinal stenosis, lumbar region without neurogenic claudication; F17.200 Nicotine dependence, unspecified, uncomplicated; Z88.5 Allergy status to narcotic agent; Z88.2 Allergy status to sulfonamides; Z91.040 Latex allergy status
CPT/HCPCS: 99211

== ENCOUNTER 2022-10-09 07:46 | Day surgery (SDC) | payer BC ==
[2022-10-05 08:54] VITALS: BMI 27.4
[2022-10-09 08:21] VITALS: RESP 18; TEMP 96.7
[2022-10-09] MEDS ORDERED: IOPAMIDOL M200 10 ML VIAL ONE (08:34)
[2022-10-09] MEDS ORDERED: methylPREDNISolone ACETATE 40 MG/ML 1 ML VIAL ONE (08:34)
--- NOTE | 2022-10-09 08:41 | P.PCN ---
Date of Procedure: 10/09/22 Operative Findings: PREOPERATIVE DIAGNOSIS: lumbar radiculopathy POSTOPERATIVE DIAGNOSIS: Lumbar radiculopathy PROCEDURE 1. Lumbar epidural steroid injection under fluoroscopic guidance at the L5-S1 level. 2. Lumbar epidurogram. Imaging: Fluoroscopy was used, images where saved to the medical record ANESTHESIA: Local only EBL: Minimal PROCEDURE INDICATION: The patient with low back pain and radiculitis symptoms unresponsive to conservative treatment. Fluoroscopy was used to optimize visualization of the needle placement and to maximize safety. PROCEDURE DESCRIPTION / TECHNIQUE: The patient was seen and identified in the preoperative area. Risks, benefits, complications including but not limited to infections, bleeding, allergic reaction to medications, nerve damage and incomplete pain relief, as well as alternatives to the procedure were discussed with the patient. The patient agreed to proceed with the procedure and signed the consent. IV was started if indicated above, and vital signs were stable. Patient was taken to the OR and time out was completed. The patient was placed in the prone position on procedure table and a pillow was placed under the abdomen to reduce lumbar lordosis. The lumbosacral area was prepped and draped in the usual sterile fashion. Vitals were closely monitored during the procedure. Using anterior-posterior fluoroscopy, the L5-S1 interlaminar space was identified and the skin over this site was marked and then infiltrated with 1% lidocaine subcutaneously. Subsequently, a 20-gauge Tuohy epidural needle was inserted and advanced toward the epidural space using the Loss of resistance technique and guided by AP and lateral fluoroscopy. The correct needle position in the epidural space was verified with the injection of 1 mL of Omnipaque 180 contrast to observe an acceptable epidurogram, after negative aspiration for blood and CSF and in the absence of paresthesias. Again after negative aspiration, a 3 ml mixture containing 40mg of depomedrol and 2 ml of preservative free Normal Saline was injected and a washout of epidurogram was seen. Needle was withdrawn intact, skin was cleansed, and bandages were applied. COMPLICATIONS: None DISPOSITION / PLANS: The patient was placed in a supine position and transferred to the recovery area in a stable condition for observation. There was no evidence of lower extremity motor or sensory deficit after the procedure. Patient was discharged from the recovery room after meeting discharge criteria. Home discharge instructions were given to the patient by the staff. The patient was reexamined prior to discharge. The patient will follow up as directed.
[2022-10-09 09:00] VITALS: BP 126/76; PULSE 77
--- NOTE | 2022-10-09 11:07 | FL ---
Intraoperative/procedural fluoroscopic services were provided. Total fluoroscopy time is 2.1 seconds with a total of 1 submitted images to PACS. Please see the operative/procedural note for further deta ils. DAP: [id number]
== END 2022-10-09 09:29 | disposition home or self-care (01) ==
LOC: ORPAIN 07:46
PROVIDERS: ATTEND Hospitalist
DX: M54.16 Radiculopathy, lumbar region (principal); Z88.2 Allergy status to sulfonamides
CPT/HCPCS: 62323; J1030; Q9966

== ENCOUNTER → 2022-12-27 | Outpatient (CLI) | payer BC ==
--- NOTE | 2022-12-27 12:42 | CT ---
EXAMINATION TYPE: CT abdomen pelvis wo con CT DLP: 337.6 mGycm, Automated exposure control for dose reduction was used. DATE OF EXAM: 12/27/2022 12:33 PM COMPARISON: CT chest abdomen pelvis 02/12/2017 CLINICAL INDICATION:Female, 62 years old with history of R10.9 abd pain; right sided abdominal pain TECHNIQUE: Standard CT of the abdomen and pelvis following the administration of oral contrast. Cor onal and sagittal reformats were performed. FINDINGS: Evaluation is limited due to lack of intravenous contrast. LOWER CHEST: The visualized lung bases are clear. Partial visualization of right breast prosthesis. ABDOMEN LIVER: Unremarkable GALLBLADDER AND BILE DUCTS: The gallbladder is surgically absent. PANCREAS: Unremarkable. SPLEEN: Unremarkable. ADRENAL GLANDS: Unremarkable. KIDNEYS AND URETERS: No evidence of hydronephrosis or renal calculus. The ureters are unremarkable. PELVIS BLADDER: Unremarkable REPRODUCTIVE: The uterus is surgically absent. ABDOMEN & PELVIS STOMACH AND BOWEL: Stomach and duodenum are unremarkable. Enteric contrast reaches the ileocecal junc tion. Distal colonic diverticulosis without evidence for acute diverticulitis. The appendix is not vi sualized however there is no surrounding inflammatory changes within the right lower quadrant. No foc al bowel wall thickening or surrounding inflammatory changes. No evidence of bowel obstruction. PERITONEUM: No evidence of pneumoperitoneum or free fluid. VASCULATURE: Mild atherosclerotic calcifications are present throughout the abdominal aorta and its b ranches. No evidence of aortic aneurysm. Few pelvic phleboliths. MUSCULOSKELETAL: No acute osseous abnormalities. Mild disc degeneration changes are present throughou t the thoracolumbar spine. This is most pronounced at L5-S1. LYMPH NODES: No gross evidence for lymphadenopathy. SOFT TISSUE/ABDOMINAL WALL: Tiny fat filled umbilical hernia. IMPRESSION: 1. No acute abdominal/pelvic process. 2. Colonic diverticulosis without evidence for acute diverticulitis.
== END | disposition home or self-care (01) ==
LOC: RADCTMAIN 10:58
PROVIDERS: ATTEND Family Medicine
DX: K57.30 Diverticulosis of large intestine without perforation or abscess without bleeding (principal); K42.9 Umbilical hernia without obstruction or gangrene; Z90.710 Acquired absence of both cervix and uterus
CPT/HCPCS: 74176

== ENCOUNTER → 2022-12-27 | Outpatient (CLI) | payer BC ==
[2022-12-27 08:11] LABS: Basophils # (A) 0.1 k/uL (0-0.2); Basophils % (A) 0 %; Eosinophils # (A) 0.4 k/uL (0-0.7); Eosinophils % (A) 3 %; HCT 41.3 % (34.0-46.0); HGB 13.4 gm/dL (11.4-16.0); Lymphocytes # (A) 3.3 k/uL (1.0-4.8); Lymphocytes % (A) 26 %; MCH 30.3 pg (25.0-35.0); MCHC 32.4 g/dL (31.0-37.0); MCV 93.5 fL (80.0-100.0); Mean Platelet Volume 7.8; Monocytes # (A) 0.7 k/uL (0-1.0); Monocytes % (A) 6 %; Neutrophils # (A) 8.2 k/uL (1.3-7.7); Neutrophils % (A) 64 %; Platelet Count 377 k/uL (150-450); RBC 4.41 m/uL (3.80-5.40); RDW 13.5 % (11.5-15.5); WBC 12.9 k/uL (3.8-10.6)
[2022-12-27 08:18] LABS: ALT 36 U/L (4-34); AST 35 U/L (14-36); African American GFR (CKD) >90 (>60 ml/min/1.73 sqM); Albumin 4.3 g/dL (3.5-5.0); Albumin/Globulin Ratio 1.6; Alkaline Phosphatase 53 U/L (38-126); Amylase 60 U/L (30-110); Anion Gap 9 mmol/L; Blood Urea Nitrogen 7 mg/dL (7-17); Calcium 9.4 mg/dL (8.4-10.2); Carbon Dioxide 27 mmol/L (22-30); Chloride 105 mmol/L (98-107); Globulin 2.7 g/dL; Glucose 77 mg/dL (74-99); Lipase 88 U/L (23-300); Non-African American GFR(CKD) 84 (>60 ml/min/1.73 sqM); Potassium 4.6 mmol/L (3.5-5.1); Sodium 141 mmol/L (137-145); Total Bilirubin 0.6 mg/dL (0.2-1.3)
== END | disposition home or self-care (01) ==
LOC: LABWHC1 07:26
PROVIDERS: ATTEND Family Medicine
DX: R10.9 Unspecified abdominal pain (principal)
CPT/HCPCS: 36415; 80053; 82150; 83690; 85025

== ENCOUNTER → 2023-02-20 | Outpatient (CLI) | payer BC ==
--- NOTE | 2023-02-22 13:14 | MR ---
EXAMINATION TYPE: MR knee LT wo con DATE OF EXAM: 02/20/2023 COMPARISON: Bilateral knee x-rays January 17, 2023 HISTORY: Left knee pain and swelling and locking for 15 years. History of surgery on right knee. TECHNIQUE: Multiplanar, multisequence images of the knee is performed without IV contrast. FINDINGS: MEDIAL MENISCUS: Medial bulging medial meniscus. Globular increased signal central body and posterior horn. Truncated appearance posterior horn has increased triangular-shaped signal inferiorly extendin g to inferior articular surface. LATERAL MENISCUS: Horizontal increased signal central body lateral meniscus extends towards the poste rior horn. CRUCIATE LIGAMENTS: The anterior and posterior cruciate ligaments are intact and unremarkable. COLLATERAL LIGAMENTS: The medial collateral ligament and lateral collateral ligament complex are inta ct and unremarkable. Slight medial bulging medial collateral ligament with mild surrounding fluid. EXTENSOR MECHANISM: Visualized quadriceps and patellar tendons are intact. EFFUSION: No significant suprapatellar joint effusion. POPLITEAL CYST: Tiny popliteal/moore cyst. TRICOMPARTMENT SPACES: Doax-dr-dwbzlgan tricompartmental joint space loss and mild spurring. 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 BONE MARROW SIGNAL: There is heterogeneous increased T2 signal along the posterior superior patellar pole at site of more prominent cartilaginous loss. OTHER: Extensive septated fluid or cystic change posterior to the knee joint level of the proximal me dial femoral condyle. IMPRESSION: 1. Full-thickness tear posterior horn medial meniscus extending into central body. 2. At least intrasubstance tear central body of lateral meniscus extending into the posterior horn. D ifficult to exclude full-thickness tear. 3. Fairly moderate tricompartment degenerative changes greatest involving patellofemoral compartment as detailed above. 4. Mild MCL sprain injury. 5. Tiny popliteal cyst.
== END | disposition home or self-care (01) ==
LOC: RADMRIMAIN 17:28
PROVIDERS: ATTEND Orthopaedic Surgery
DX: M17.12 Unilateral primary osteoarthritis, left knee (principal); S83.412A Sprain of medial collateral ligament of left knee, initial encounter; X58.XXXA Exposure to other specified factors, initial encounter; M23.222 Derangement of posterior horn of medial meniscus due to old tear or injury, left knee; M23.201 Derangement of unspecified lateral meniscus due to old tear or injury, left knee; M71.22 Synovial cyst of popliteal space [Baker], left knee

== ENCOUNTER → 2024-03-06 | Outpatient (CLI) | payer BC, MEDICARE ==
--- NOTE | 2024-03-06 10:00 | MR ---
EXAMINATION TYPE: MR parson LT wo/w con DATE OF EXAM: 03/06/2024 COMPARISON: None HISTORY: Pain CONTRAST: The planar multi sequence noncontrast MRI of the cervical spine. FINDINGS: There is straightening of the cervical spine with multilevel disc desiccation. Mild degenerative disc disease C3-C4 with moderate to severe changes at C4-5, C5-6 and C6-C7. Posterior spondylosis at thes e levels. At C2-C3 no disc herniation or canal stenosis. No foraminal encroachment. At C3-C4 there is facet arthropathy greater on the left with uncovertebral joint hypertrophy. Mild le ft foraminal encroachment. No disc herniation or canal stenosis. At C4-C5 there is posterior disc osteophyte complex, facet arthropathy and uncovertebral joint hypert rophy. Moderate to severe left and mild right foraminal encroachment. Oral and central stenosis. At C5-C6 there is posterior disc osteophyte complex with uncovertebral joint hypertrophy. Moderate bi lateral foraminal encroachment. Borderline canal stenosis. At C6-C7 there is posterior broad-based disc osteophyte complex with disc herniation greater paracent rally to the left approaches upon the anterior margin of the spinal cord with mild mass effect. Unco vertebral joint and particularly contributes to moderate bilateral foraminal encroachment. At C7-T1 no disc herniation, canal stenosis or foraminal encroachment. Craniocervical junction maintained. IMPRESSION: 1. There is a broad-based central and left paracentral disc herniation with disc osteophyte complex C 6-C7 resulting in mild anterior compression of the spinal cord. 2. Multilevel degenerative disc disease with moderate to severe changes at level C4-C7. 3. There is a posterior disc osteophyte complex with borderline canal stenosis C5-C6 and moderate moody ateral foraminal encroachment. 4. Posterior disc osteophyte complex with facet arthropathy and uncovertebral joint hypertrophy C4-C5 results in moderate to severe left-sided foraminal encroachment. Borderline canal stenosis. [facility], , 03/06/2024 9:42 AM
== END | disposition home or self-care (01) ==
LOC: RADMRIMAIN 08:08
PROVIDERS: ATTEND Family Medicine
DX: M48.02 Spinal stenosis, cervical region
CPT/HCPCS: 72141

== ENCOUNTER → 2024-03-11 | Outpatient (CLI) | payer BC, MEDICARE ==
--- NOTE | 2024-03-11 13:45 | MM ---
Reason for Exam: Hx of breast augmentation, asymptomatic. Last mammogram was performed 1 year(s) and 10 month(s) ago. Patient History: Menarche at age 18. First Full-Term at age 28. Hysterectomy at age 37. Postmenopausal. Other cancer. 2006, Bilateral Implants. Risk Values: Regi 5 year model risk: 1.6%. NCI Lifetime model risk: 6.8%. Prior Study Comparison: 03/25/2013 Screening Mammogram, Unknown. 05/27/2020 Bilateral Screening Mammogram, [facility]. 06/05/2022 Bilateral MG screening mammo implant/CAD, [facility]. Tissue Density: The breasts are heterogeneously dense, which may obscure small masses. Findings: Analyzed By CAD. Bilateral breast implants appear intact. Right breast: There is no suspicious group of microcalcifications or new suspicious mass. Benign-appearing calcifications right breast. Left breast: There is no suspicious group of microcalcifications or new suspicious mass. Benign-appearing calcifications left breast. Overall Assessment: Benign, BI-RAD 2 Management: Screening Mammogram of both breasts in [address] [facility] will attempt to contact patient to return for supplemental views and ultrasound if indicated. Patient should continue monthly self-breast exams. A clinical breast exam by your physician is recommended on an annual basis. This exam should not preclude additional follow-up of suspicious palpable abnormalities. Note on Regi scores and lifetime risk: 1. A Regi score greater than 3% is considered moderate risk. If this is the case, consider specialist referral to assess eligibility for a risk reducing agent. 2. If overall lifetime risk for the development of breast cancer is 20% or higher, the patient may qualify for future screening with alternating mammogram and breast MRI. [facility], , 03/11/2024 1:42 PM. Electronically signed and approved by: Fletcher Garcia DO
== END | disposition home or self-care (01) ==
LOC: RADMAMWWP 07:58
PROVIDERS: ATTEND Family Medicine
DX: Z12.31 Encounter for screening mammogram for malignant neoplasm of breast
CPT/HCPCS: 77067